=== PATIENT | female | born 1935 | race Caucasian/White ===

== ENCOUNTER 2017-06-08 18:32 | Inpatient (IN) | payer OTHER, BC ==
[2017-06-07 20:00] VITALS: BP_SYST 110
[~2017-06-08] VITALS: Ht 157.5 cm; Wt 68.9 kg
[~2017-06-08 18:32] MED LIST: AMIO100T4 PO; AMLO5TAB4 PO; DOCU-144 PO; FURO-149 PO; GABA-529 PO; INSU100I20 SQ; INSU200I SQ; IPRA4AER INH; LEVO25TA7 PO; OMEP20CA10 PO; PRAV20TA PO; PRED10TA PO; SPIRIVA INH
[2017-06-08 18:35] VITALS: BP_SYST 116
[2017-06-08] MEDS ORDERED: IPRATROPIUM BROM 0.5 MG/2.5 ML VIAL.NEB (ATROVENT) IH ONE (18:45)
[2017-06-08] MEDS ORDERED: ALBUTEROL SULFATE 0.083% 2.5 MG/3 ML VIAL.NEB IH ONE (18:45)
[2017-06-08 19:08] LABS: BASOPHILS % (AUTO) 0.3 % (0.0-2.0); EOSINOPHILS # (AUTO) 0.1 K/uL (0.0-0.4); HEMATOCRIT 36.8 % (36-48); HEMOGLOBIN 12.2 g/dL (12.0-16.0); LYMPHOCYTES # (AUTO) 1.3 K/uL (1.0-5.5); MEAN CORPUSCULAR HEMOGLOBIN 28 pg (27-31); MEAN CORPUSCULAR HGB CONC 33 % (32-36); MEAN CORPUSCULAR VOLUME 86 fL (79.0-98.0); MONOCYTES # (AUTO) 0.9 K/uL (0.0-1.0); MONOCYTES % (AUTO) 7.1 % (1.7-9.3); NEUTROPHILS # (AUTO) 10.3 K/uL (1.8-7.7); NEUTROPHILS % (AUTO) 81.6 % (40.0-70.0); PLATELET COUNT (AUTO) 255 K/uL (130-430); RED BLOOD CELL COUNT(AUTO) 4.31 MIL/uL (4.2-6.2); RED CELL DISTRIBUTION WIDTH 15.9 % (9.0-15.0); WHITE BLOOD COUNT (AUTO) 12.6 K/uL (4.8-10.8)
[2017-06-08 19:14] LABS: ANION GAP 7 (5-15); CALCIUM 8.2 mg/dL (8.4-11.0); CHLORIDE 95 mmol/L (98-107); CREATININE 2.35 mg/dL (0.55-1.30); GLUCOSE 53 mg/dL (70-99); POTASSIUM 4.2 mmol/L (3.5-5.1); SODIUM SERUM 132 mmol/L (136-145); UREA NITROGEN, BLOOD 35 mg/dL (8-21)
[2017-06-08 19:19] LABS: ALANINE AMINOTRANSFERASE 24 U/L (12-78); ALBUMIN 2.8 g/dL (3.4-4.8); ASPARTATE AMINOTRANSFERASE 33 U/L (10-37); CREATINE KINASE, TOTAL 305 U/L (26-192); PROTHROMBIN TIME 11.1 SECS (9.5-12.5); TOTAL BILIRUBIN 0.4 mg/dL (0.0-1.0)
[2017-06-08] MEDS ORDERED: MORPHINE 4 MG/ML INJ. SYRINGE IVP ONE (19:30)
[2017-06-08 19:48] LABS: CKMB RELATIVE INDEX 2.9 (0.0-2.9); CREATINE KINASE MB 8.9 ng/mL (0-3.6)
[2017-06-08] MEDS ORDERED: NACL 0.9% 1,000 ML IV ONE (19:53)
[2017-06-08] MEDS ORDERED: DEXTROSE 50% JECT 50 ML DISP.SYRIN IVP ONE (20:15)
[2017-06-08] MEDS ORDERED: D5W 1,000 ML IV SCH (21:44)
[2017-06-08 21:49] VITALS: BP_SYST 103
[2017-06-08 22:09] LABS: BILIRUBIN,URINE NEGATIVE (NEGATIVE); CLARITY/URINE CLOUDY (CLEAR); COLOR,URINE YELLOW (YELLOW); GLUCOSE,URINE NEGATIVE (NEGATIVE); KETONES,URINE NEGATIVE (NEGATIVE); LEUKOCYTE ESTERASE ,URINE 2+ (NEGATIVE); NITRITE, URINE NEGATIVE (NEGATIVE); PROTEIN URINE TRACE (NEGATIVE); UROBILINOGEN,URINE 0.2 (0.2-1.0)
[2017-06-08 22:15] LABS: BLOOD, URINE TRACE (NEGATIVE)
[2017-06-08] MEDS ORDERED: ENOXAPARIN SODIUM 30 MG/0.3 ML SYRINGE SUBCUT ONE (22:15)
[2017-06-08 22:22] LABS: BACTERIA,URINE FEW /HPF (None Seen); RBC,URINE 0-3 /HPF (0-3); WBC,URINE >100 /HPF (0-3)
[2017-06-08] MEDS ORDERED: D5NS 1,000 ML IV SCH ×2 (22:30)
[2017-06-08] MEDS ORDERED: ACETAMINOPHEN 325 MG TABLET PO PRN (22:30)
[2017-06-08] MEDS: LEVOTHYROXINE SODIUM 0.125 MG TABLET PO SCH (22:45)
[2017-06-08] MEDS: cefTRIAXone 1 GM in D5W 50 ML IV SCH (23:15)
[2017-06-08] MEDS: MORPHINE 2 MG/ML INJ. SYRINGE IVP PRN (23:21)
[2017-06-08] MEDS: D5/0.45 NS 1,000 ML IV SCH (23:47)
[2017-06-08] MEDS ORDERED: cefTRIAXone 1 GM IVPB PREMIX 50 ML IV ONE (23:49)
[2017-06-09] VITALS (13 sets, daily range): BP systolic 93–141
[2017-06-09] MEDS: IPRATROPIUM/ALBUTEROL SULFATE 3 ML AMPUL.NEB INH SCH ×4 (01:07→19:31)
[2017-06-09] MEDS: LEVOTHYROXINE SODIUM 0.125 MG TABLET PO SCH (05:11)
[2017-06-09] MEDS: MORPHINE 2 MG/ML INJ. SYRINGE IVP PRN ×2 (06:50→21:13)
[2017-06-09] MEDS: INSULIN ASPART 100 UNITS/ML, 10 ML VIAL (NovoLOG) SUBCUT PRN ×2 (06:55→22:20)
[2017-06-09 07:58] LABS: ANION GAP 6 (5-15); BASOPHILS % (AUTO) 0.3 % (0.0-2.0); CALCIUM 7.5 mg/dL (8.4-11.0); CHLORIDE 95 mmol/L (98-107); CREATININE 2.46 mg/dL (0.55-1.30); EOSINOPHILS % (AUTO) 0.3 % (0.0-4.0); GLUCOSE 261 mg/dL (70-99); HEMATOCRIT 29.4 % (36-48); HEMOGLOBIN 9.8 g/dL (12.0-16.0); LYMPHOCYTES # (AUTO) 0.6 K/uL (1.0-5.5); LYMPHOCYTES % (AUTO) 5.9 % (20.5-51.5); MEAN CORPUSCULAR HEMOGLOBIN 29 pg (27-31); MEAN CORPUSCULAR HGB CONC 33 % (32-36); MEAN CORPUSCULAR VOLUME 86 fL (79.0-98.0); MONOCYTES # (AUTO) 0.8 K/uL (0.0-1.0); MONOCYTES % (AUTO) 7.7 % (1.7-9.3); NEUTROPHILS # (AUTO) 8.4 K/uL (1.8-7.7); NEUTROPHILS % (AUTO) 85.8 % (40.0-70.0); PLATELET COUNT (AUTO) 198 K/uL (130-430); POTASSIUM 5.2 mmol/L (3.5-5.1); RED BLOOD CELL COUNT(AUTO) 3.41 MIL/uL (4.2-6.2); RED CELL DISTRIBUTION WIDTH 15.9 % (9.0-15.0); SODIUM SERUM 131 mmol/L (136-145); UREA NITROGEN, BLOOD 33 mg/dL (8-21); WHITE BLOOD COUNT (AUTO) 9.8 K/uL (4.8-10.8)
[2017-06-09] MEDS: GABAPENTIN 100 MG CAPSULE PO SCH (09:00)
[2017-06-09] MEDS: ATORVASTATIN 20 MG TABLET PO SCH (09:00)
[2017-06-09] MEDS: OMEPRAZOLE 20 MG CAPSULE.DR (PriLOSEC) PO SCH (09:00)
[2017-06-09] MEDS: AMIODARONE HCL 200 MG TABLET PO SCH (09:00)
[2017-06-09] MEDS ORDERED: POLYMYXIN 500,000/BACIT.10,000 UNITS in NS IRR 1 L IR ONE (15:38)
[2017-06-09] MEDS ORDERED: LR 1,000 ML IV SCH (16:49)
[2017-06-09] MEDS ORDERED: METOCLOPRAMIDE HCL 10 MG/2 ML VIAL IVP PRN (17:00)
[2017-06-09] MEDS ORDERED: MORPHINE 2 MG/ML INJ. SYRINGE IVP PRN ×3 (17:00)
[2017-06-09] MEDS ORDERED: ALBUTEROL SULFATE 0.083% 2.5 MG/3 ML VIAL.NEB INH ONE ×2 (18:15→18:23)
[2017-06-09] MEDS ORDERED: DEXAMETHASONE SOD PHOSPHATE 10 MG/ML VIAL IVP ONE (18:30)
[2017-06-09] MEDS ORDERED: RACEPINEPHRINE HCL 0.5 ML VIAL.NEB INH ONE ×2 (18:30→18:38)
[2017-06-09] MEDS ORDERED: DEXAMETHASONE SOD PHOSPHATE 4 MG/ML VIAL ONE (18:40)
[2017-06-09] MEDS ORDERED: MIDAZOLAM HCL 2 MG/2 ML VIAL (VERSED) ONE (21:11)
[2017-06-09] MEDS ORDERED: MIDAZOLAM HCL 2 MG/2 ML VIAL (VERSED) IVP ONE (21:30)
[2017-06-09] MEDS ORDERED: MIDAZOLAM HCL 5 MG/5 ML VIAL IVP ONE (21:30)
[2017-06-09 21:52] LABS: BLOOD GAS PH 7.239 (7.350-7.450)
[2017-06-09 21:53] LABS: ABG TOTAL HEMOGLOBIN 9.9 G/dL (12.0-18.0); BLOOD GAS BASE EXCESS -1.9 mmol/L (-3.0-3.0); BLOOD GAS COHb% 0.4 % (0.5-1.5); BLOOD GAS HHB 15.3 % (0.0-6.0)
[2017-06-09] MEDS ORDERED: LORazepam 2 MG/ML VIAL IVP PRN (22:15)
[2017-06-09] MEDS ORDERED: MORPHINE 4 MG/ML INJ. SYRINGE IVP PRN (22:15)
[2017-06-09 22:56] LABS: BLOOD GAS PH 7.351 (7.350-7.450)
[2017-06-09 22:57] LABS: ABG TOTAL HEMOGLOBIN 8.9 G/dL (12.0-18.0); BLOOD GAS BASE EXCESS 0.2 mmol/L (-3.0-3.0); BLOOD GAS COHb% 1.2 % (0.5-1.5); BLOOD GAS HHB 6.6 % (0.0-6.0); BLOOD O2Hb% 91.6 % (94.0-97.0)
[2017-06-09] MEDS: ceFAZolin SODIUM 2 GM in D5W 100 ML IV SCH (23:09)
[2017-06-09] MEDS: cefTRIAXone 1 GM in D5W 50 ML IV SCH (23:43)
[2017-06-10] VITALS (29 sets, daily range): BP systolic 92–131
[2017-06-10] MEDS: cefTRIAXone 1 GM in D5W 50 ML IV SCH ×2
[2017-06-10] MEDS: IPRATROPIUM/ALBUTEROL SULFATE 3 ML AMPUL.NEB INH SCH ×4 (01:15→19:31)
[2017-06-10] MEDS: D5/0.45 NS 1,000 ML IV SCH (03:16)
[2017-06-10] MEDS: LEVOTHYROXINE SODIUM 0.125 MG TABLET PO SCH (05:59)
[2017-06-10] MEDS: INSULIN ASPART 100 UNITS/ML, 10 ML VIAL (NovoLOG) SUBCUT PRN ×4 (06:16→20:53)
[2017-06-10 06:54] LABS: BASOPHILS % (AUTO) 0.1 % (0.0-2.0); HEMATOCRIT 24.6 % (36-48); HEMOGLOBIN 8.1 g/dL (12.0-16.0); LYMPHOCYTES # (AUTO) 0.3 K/uL (1.0-5.5); LYMPHOCYTES % (AUTO) 2.7 % (20.5-51.5); MEAN CORPUSCULAR HEMOGLOBIN 28 pg (27-31); MEAN CORPUSCULAR HGB CONC 33 % (32-36); MEAN CORPUSCULAR VOLUME 86 fL (79.0-98.0); MONOCYTES # (AUTO) 0.4 K/uL (0.0-1.0); MONOCYTES % (AUTO) 3.7 % (1.7-9.3); NEUTROPHILS % (AUTO) 93.5 % (40.0-70.0); PLATELET COUNT (AUTO) 176 K/uL (130-430); RED BLOOD CELL COUNT(AUTO) 2.86 MIL/uL (4.2-6.2); RED CELL DISTRIBUTION WIDTH 15.8 % (9.0-15.0); WHITE BLOOD COUNT (AUTO) 10.7 K/uL (4.8-10.8)
[2017-06-10 07:13] LABS: ANION GAP 8 (5-15); CALCIUM 7.5 mg/dL (8.4-11.0); CHLORIDE 94 mmol/L (98-107); CREATININE 2.28 mg/dL (0.55-1.30); FREE T4 (FREE THYROXINE) 1.2 ng/dL (0.6-1.6); GLUCOSE 376 mg/dL (70-99); POTASSIUM 5.5 mmol/L (3.5-5.1); SODIUM SERUM 129 mmol/L (136-145); THYROID STIMULATING HORMONE 0.61 uIu/mL (0.34-4.82); UREA NITROGEN, BLOOD 35 mg/dL (8-21)
[2017-06-10] MEDS: ENOXAPARIN SODIUM 30 MG/0.3 ML SYRINGE SUBCUT SCH (08:30)
[2017-06-10] MEDS: ceFAZolin SODIUM 2 GM in D5W 100 ML IV SCH (08:30)
[2017-06-10] MEDS: ATORVASTATIN 20 MG TABLET PO SCH (09:00)
[2017-06-10] MEDS: OMEPRAZOLE 20 MG CAPSULE.DR (PriLOSEC) PO SCH (09:00)
[2017-06-10] MEDS: AMIODARONE HCL 200 MG TABLET PO SCH (09:00)
[2017-06-10] MEDS ORDERED: FUROSEMIDE 20 MG/2 ML VIAL IVP ONE (10:00)
[2017-06-10 10:27] LABS: BLOOD GAS PH 7.406 (7.350-7.450)
[2017-06-10 10:28] LABS: ABG TOTAL HEMOGLOBIN 8.2 G/dL (12.0-18.0); BLOOD GAS BASE EXCESS -0.2 mmol/L (-3.0-3.0); BLOOD GAS COHb% 0.6 % (0.5-1.5); BLOOD O2Hb% 93.3 % (94.0-97.0)
[2017-06-10] MEDS: ONDANSETRON HCL 4 MG/2 ML VIAL IVP PRN (10:44)
[2017-06-10] MEDS ORDERED: ALBUTEROL SULFATE 0.083% 2.5 MG/3 ML VIAL.NEB INH PRN (11:15)
[2017-06-10] MEDS ORDERED: IPRATROPIUM BROM 0.5 MG/2.5 ML VIAL.NEB (ATROVENT) INH PRN (11:15)
[2017-06-10] MEDS ORDERED: IPRATROPIUM BROM 0.5 MG/2.5 ML VIAL.NEB (ATROVENT) INH SCH (13:00)
[2017-06-10] MEDS ORDERED: ALBUTEROL SULFATE 0.083% 2.5 MG/3 ML VIAL.NEB INH SCH (13:00)
[2017-06-10 14:37] LABS: BLOOD GAS BASE EXCESS 3.5 mmol/L (-3.0-3.0); BLOOD GAS COHb% 1.8 % (0.5-1.5); BLOOD GAS HHB 3.4 % (0.0-6.0); BLOOD GAS PH 7.422 (7.350-7.450)
[2017-06-10] MEDS: GABAPENTIN 100 MG CAPSULE PO SCH ×2 (15:47→20:37)
[2017-06-10 16:52] LABS: ABG TOTAL HEMOGLOBIN 8.6 G/dL (12.0-18.0); BLOOD GAS BASE EXCESS 3.3 mmol/L (-3.0-3.0); BLOOD GAS COHb% 0.6 % (0.5-1.5); BLOOD GAS HHB 8.9 % (0.0-6.0); BLOOD O2Hb% 90.2 % (94.0-97.0)
[2017-06-10] MEDS: MORPHINE 2 MG/ML INJ. SYRINGE IVP PRN (20:36)
[2017-06-11] VITALS (19 sets, daily range): BP systolic 101–127
[2017-06-11] MEDS: IPRATROPIUM/ALBUTEROL SULFATE 3 ML AMPUL.NEB INH SCH ×4 (01:15→21:10)
[2017-06-11] MEDS: LEVOTHYROXINE SODIUM 0.125 MG TABLET PO SCH (06:31)
[2017-06-11] MEDS: INSULIN ASPART 100 UNITS/ML, 10 ML VIAL (NovoLOG) SUBCUT PRN ×4 (06:38→20:55)
[2017-06-11 06:47] LABS: BASOPHILS % (AUTO) 0.1 % (0.0-2.0); HEMATOCRIT 23.3 % (36-48); HEMOGLOBIN 7.4 g/dL (12.0-16.0); LYMPHOCYTES # (AUTO) 0.3 K/uL (1.0-5.5); LYMPHOCYTES % (AUTO) 2.1 % (20.5-51.5); MEAN CORPUSCULAR HEMOGLOBIN 28 pg (27-31); MEAN CORPUSCULAR HGB CONC 32 % (32-36); MEAN CORPUSCULAR VOLUME 87 fL (79.0-98.0); MONOCYTES # (AUTO) 0.6 K/uL (0.0-1.0); MONOCYTES % (AUTO) 4.5 % (1.7-9.3); NEUTROPHILS # (AUTO) 12.8 K/uL (1.8-7.7); NEUTROPHILS % (AUTO) 93.3 % (40.0-70.0); PLATELET COUNT (AUTO) 188 K/uL (130-430); RED BLOOD CELL COUNT(AUTO) 2.67 MIL/uL (4.2-6.2); RED CELL DISTRIBUTION WIDTH 15.9 % (9.0-15.0)
[2017-06-11 06:52] LABS: WHITE BLOOD COUNT (AUTO) 13.7 K/uL (4.8-10.8)
[2017-06-11 07:11] LABS: ALANINE AMINOTRANSFERASE 14 U/L (12-78); ALBUMIN 2.1 g/dL (3.4-4.8); ANION GAP 5 (5-15); ASPARTATE AMINOTRANSFERASE 33 U/L (10-37); CALCIUM 7.9 mg/dL (8.4-11.0); CHLORIDE 93 mmol/L (98-107); CREATININE 1.82 mg/dL (0.55-1.30); GLUCOSE 340 mg/dL (70-99); POTASSIUM 4.7 mmol/L (3.5-5.1); SODIUM SERUM 128 mmol/L (136-145); TOTAL BILIRUBIN 0.3 mg/dL (0.0-1.0); UREA NITROGEN, BLOOD 34 mg/dL (8-21)
[2017-06-11] MEDS: AMIODARONE HCL 200 MG TABLET PO SCH (08:47)
[2017-06-11] MEDS: ATORVASTATIN 20 MG TABLET PO SCH (08:48)
[2017-06-11] MEDS: OMEPRAZOLE 20 MG CAPSULE.DR (PriLOSEC) PO SCH (08:48)
[2017-06-11] MEDS: ENOXAPARIN SODIUM 30 MG/0.3 ML SYRINGE SUBCUT SCH (08:48)
[2017-06-11] MEDS: GABAPENTIN 100 MG CAPSULE PO SCH ×3 (08:48→20:43)
[2017-06-11] MEDS ORDERED: FUROSEMIDE 20 MG/2 ML VIAL IVP ONE (09:45)
[2017-06-11] MEDS: ONDANSETRON HCL 4 MG/2 ML VIAL IVP PRN (11:35)
[2017-06-11] MEDS: MORPHINE 2 MG/ML INJ. SYRINGE IVP PRN (11:37)
[2017-06-11] MEDS: HYDROcodone/ACETAMIN 5-325 MG TAB (NORCO/ VICODIN) PO PRN (15:20)
[2017-06-11] MEDS: cefTRIAXone 1 GM in D5W 50 ML IV SCH (22:53)
[2017-06-12] VITALS (8 sets, daily range): BP systolic 101–128
[2017-06-12] MEDS: IPRATROPIUM/ALBUTEROL SULFATE 3 ML AMPUL.NEB INH SCH ×4 (01:39→19:51)
[2017-06-12] MEDS: LEVOTHYROXINE SODIUM 0.125 MG TABLET PO SCH (05:39)
[2017-06-12] MEDS: MORPHINE 2 MG/ML INJ. SYRINGE IVP PRN (05:42)
[2017-06-12] MEDS: INSULIN ASPART 100 UNITS/ML, 10 ML VIAL (NovoLOG) SUBCUT PRN ×3 (06:23→21:58)
[2017-06-12 06:34] LABS: BASOPHILS % (AUTO) 0.1 % (0.0-2.0); EOSINOPHILS # (AUTO) 0.1 K/uL (0.0-0.4); EOSINOPHILS % (AUTO) 0.7 % (0.0-4.0); HEMATOCRIT 26.8 % (36-48); HEMOGLOBIN 8.6 g/dL (12.0-16.0); LYMPHOCYTES # (AUTO) 0.4 K/uL (1.0-5.5); LYMPHOCYTES % (AUTO) 4.9 % (20.5-51.5); MEAN CORPUSCULAR HEMOGLOBIN 28 pg (27-31); MEAN CORPUSCULAR HGB CONC 32 % (32-36); MEAN CORPUSCULAR VOLUME 88 fL (79.0-98.0); MONOCYTES # (AUTO) 0.6 K/uL (0.0-1.0); MONOCYTES % (AUTO) 6.8 % (1.7-9.3); NEUTROPHILS # (AUTO) 7.5 K/uL (1.8-7.7); NEUTROPHILS % (AUTO) 87.5 % (40.0-70.0); PLATELET COUNT (AUTO) 190 K/uL (130-430); RED BLOOD CELL COUNT(AUTO) 3.04 MIL/uL (4.2-6.2); WHITE BLOOD COUNT (AUTO) 8.6 K/uL (4.8-10.8)
[2017-06-12 06:58] LABS: ALANINE AMINOTRANSFERASE 19 U/L (12-78); ANION GAP 2 (5-15); ASPARTATE AMINOTRANSFERASE 54 U/L (10-37); CALCIUM 7.8 mg/dL (8.4-11.0); CHLORIDE 96 mmol/L (98-107); POTASSIUM 5.2 mmol/L (3.5-5.1); SODIUM SERUM 129 mmol/L (136-145); TOTAL BILIRUBIN 0.4 mg/dL (0.0-1.0); TOTAL PROTEIN, SERUM 5.9 g/dL (6.4-8.3); UREA NITROGEN, BLOOD 41 mg/dL (8-21)
[2017-06-12 07:04] LABS: GLUCOSE 437 mg/dL (70-99)
[2017-06-12] MEDS ORDERED: INSULIN ASPART 100 UNITS/ML, 10 ML VIAL SUBCUT ONE (07:15)
[2017-06-12] MEDS: FUROSEMIDE 20 MG/2 ML VIAL IVP SCH (09:23)
[2017-06-12] MEDS: AMIODARONE HCL 200 MG TABLET PO SCH (09:24)
[2017-06-12] MEDS: ATORVASTATIN 20 MG TABLET PO SCH (09:24)
[2017-06-12] MEDS: GABAPENTIN 100 MG CAPSULE PO SCH ×3 (09:25→21:52)
[2017-06-12] MEDS: OMEPRAZOLE 20 MG CAPSULE.DR (PriLOSEC) PO SCH (09:25)
[2017-06-12] MEDS: ENOXAPARIN SODIUM 30 MG/0.3 ML SYRINGE SUBCUT SCH (09:26)
[2017-06-12] MEDS: HYDROcodone/ACETAMIN 5-325 MG TAB (NORCO/ VICODIN) PO PRN ×3 (09:28→15:19)
[2017-06-12] MEDS: cefTRIAXone 1 GM in D5W 50 ML IV SCH (23:23)
[2017-06-13 00:39] VITALS: BP_SYST 102
[2017-06-13] MEDS: IPRATROPIUM/ALBUTEROL SULFATE 3 ML AMPUL.NEB INH SCH ×4 (01:24→19:49)
[2017-06-13 04:04] VITALS: BP_SYST 128
[2017-06-13] MEDS: INSULIN ASPART 100 UNITS/ML, 10 ML VIAL (NovoLOG) SUBCUT PRN ×4 (06:13→20:59)
[2017-06-13] MEDS: LEVOTHYROXINE SODIUM 0.125 MG TABLET PO SCH (06:25)
[2017-06-13 07:10] LABS: BASOPHILS % (AUTO) 0.3 % (0.0-2.0); EOSINOPHILS # (AUTO) 0.3 K/uL (0.0-0.4); EOSINOPHILS % (AUTO) 2.7 % (0.0-4.0); HEMATOCRIT 27.7 % (36-48); HEMOGLOBIN 8.9 g/dL (12.0-16.0); LYMPHOCYTES # (AUTO) 0.9 K/uL (1.0-5.5); LYMPHOCYTES % (AUTO) 9.2 % (20.5-51.5); MEAN CORPUSCULAR HEMOGLOBIN 29 pg (27-31); MEAN CORPUSCULAR HGB CONC 32 % (32-36); MEAN CORPUSCULAR VOLUME 89 fL (79.0-98.0); MONOCYTES # (AUTO) 0.9 K/uL (0.0-1.0); MONOCYTES % (AUTO) 9.1 % (1.7-9.3); NEUTROPHILS # (AUTO) 8.1 K/uL (1.8-7.7); NEUTROPHILS % (AUTO) 78.7 % (40.0-70.0); PLATELET COUNT (AUTO) 224 K/uL (130-430); RED BLOOD CELL COUNT(AUTO) 3.11 MIL/uL (4.2-6.2); RED CELL DISTRIBUTION WIDTH 16.1 % (9.0-15.0); WHITE BLOOD COUNT (AUTO) 10.2 K/uL (4.8-10.8)
[2017-06-13 07:14] LABS: ALANINE AMINOTRANSFERASE 22 U/L (12-78); ALBUMIN 2.1 g/dL (3.4-4.8); ANION GAP 2 (5-15); ASPARTATE AMINOTRANSFERASE 51 U/L (10-37); CALCIUM 8.6 mg/dL (8.4-11.0); CHLORIDE 96 mmol/L (98-107); CREATININE 1.65 mg/dL (0.55-1.30); GLUCOSE 185 mg/dL (70-99); SODIUM SERUM 131 mmol/L (136-145); TOTAL BILIRUBIN 0.4 mg/dL (0.0-1.0); UREA NITROGEN, BLOOD 40 mg/dL (8-21)
[2017-06-13 08:21] VITALS: BP_SYST 105
[2017-06-13] MEDS: AMIODARONE HCL 200 MG TABLET PO SCH (08:44)
[2017-06-13] MEDS: ATORVASTATIN 20 MG TABLET PO SCH (08:45)
[2017-06-13] MEDS: HYDROcodone/ACETAMIN 5-325 MG TAB (NORCO/ VICODIN) PO PRN (08:45)
[2017-06-13] MEDS: OMEPRAZOLE 20 MG CAPSULE.DR (PriLOSEC) PO SCH (08:46)
[2017-06-13] MEDS: DOCUSATE SODIUM 100 MG CAPSULE PO SCH ×2 (08:46→20:55)
[2017-06-13] MEDS: FUROSEMIDE 20 MG/2 ML VIAL IVP SCH (08:47)
[2017-06-13] MEDS: GABAPENTIN 100 MG CAPSULE PO SCH ×3 (08:49→20:55)
[2017-06-13] MEDS: ENOXAPARIN SODIUM 30 MG/0.3 ML SYRINGE SUBCUT SCH (08:50)
[2017-06-13] MEDS: methylPREDNISolone SOD SUCC/PF 62.5 MG/ML VIAL IVP SCH ×2 (10:28→17:27)
[2017-06-13] MEDS: MORPHINE 2 MG/ML INJ. SYRINGE IVP PRN (10:28)
[2017-06-13] MEDS ORDERED: guaiFENesin ER 600 MG TAB PO SCH (12:45)
[2017-06-13 14:00] VITALS: BP_SYST 103
[2017-06-13 17:10] VITALS: BP_SYST 126
[2017-06-13] MEDS: cefTRIAXone 1 GM in D5W 50 ML IV SCH (17:32)
[2017-06-13 19:55] VITALS: BP_SYST 117
[2017-06-13] MEDS: guaiFENesin ER 600 MG TAB PO SCH (20:55)
[2017-06-14] MEDS: IPRATROPIUM/ALBUTEROL SULFATE 3 ML AMPUL.NEB INH SCH ×4 (00:20→19:30)
[2017-06-14 00:33] VITALS: BP_SYST 104
[2017-06-14] MEDS: methylPREDNISolone SOD SUCC/PF 62.5 MG/ML VIAL IVP SCH ×2 (01:59→10:45)
[2017-06-14] MEDS: HYDROcodone/ACETAMIN 5-325 MG TAB (NORCO/ VICODIN) PO PRN ×2 (02:06→08:30)
[2017-06-14 04:50] VITALS: BP_SYST 138
[2017-06-14] MEDS: LEVOTHYROXINE SODIUM 0.125 MG TABLET PO SCH (06:03)
[2017-06-14] MEDS: INSULIN ASPART 100 UNITS/ML, 10 ML VIAL (NovoLOG) SUBCUT PRN ×4 (06:03→20:09)
[2017-06-14 07:14] LABS: BASOPHILS % (AUTO) 0.2 % (0.0-2.0); EOSINOPHILS % (AUTO) 0.1 % (0.0-4.0); HEMATOCRIT 28.2 % (36-48); HEMOGLOBIN 9.3 g/dL (12.0-16.0); LYMPHOCYTES # (AUTO) 0.3 K/uL (1.0-5.5); LYMPHOCYTES % (AUTO) 3.5 % (20.5-51.5); MEAN CORPUSCULAR HEMOGLOBIN 29 pg (27-31); MEAN CORPUSCULAR HGB CONC 33 % (32-36); MEAN CORPUSCULAR VOLUME 88 fL (79.0-98.0); MONOCYTES # (AUTO) 0.1 K/uL (0.0-1.0); MONOCYTES % (AUTO) 1.7 % (1.7-9.3); NEUTROPHILS # (AUTO) 8.1 K/uL (1.8-7.7); NEUTROPHILS % (AUTO) 94.5 % (40.0-70.0); PLATELET COUNT (AUTO) 241 K/uL (130-430); RED CELL DISTRIBUTION WIDTH 15.6 % (9.0-15.0); WHITE BLOOD COUNT (AUTO) 8.5 K/uL (4.8-10.8)
[2017-06-14 07:24] LABS: ALANINE AMINOTRANSFERASE 25 U/L (12-78); ALBUMIN 2.1 g/dL (3.4-4.8); ANION GAP 5 (5-15); ASPARTATE AMINOTRANSFERASE 39 U/L (10-37); CALCIUM 8.2 mg/dL (8.4-11.0); CHLORIDE 92 mmol/L (98-107); CREATININE 1.48 mg/dL (0.55-1.30); GLUCOSE 359 mg/dL (70-99); POTASSIUM 4.8 mmol/L (3.5-5.1); SODIUM SERUM 129 mmol/L (136-145); TOTAL BILIRUBIN 0.5 mg/dL (0.0-1.0); TOTAL PROTEIN, SERUM 6.2 g/dL (6.4-8.3); UREA NITROGEN, BLOOD 37 mg/dL (8-21)
[2017-06-14 07:54] VITALS: BP_SYST 129
[2017-06-14] MEDS: FUROSEMIDE 20 MG/2 ML VIAL IVP SCH (08:29)
[2017-06-14] MEDS: OMEPRAZOLE 20 MG CAPSULE.DR (PriLOSEC) PO SCH (08:30)
[2017-06-14] MEDS: AMIODARONE HCL 200 MG TABLET PO SCH (08:30)
[2017-06-14] MEDS: DOCUSATE SODIUM 100 MG CAPSULE PO SCH ×2 (08:30→20:02)
[2017-06-14] MEDS: ATORVASTATIN 20 MG TABLET PO SCH (08:30)
[2017-06-14] MEDS: GABAPENTIN 100 MG CAPSULE PO SCH ×3 (08:30→20:02)
[2017-06-14] MEDS: guaiFENesin ER 600 MG TAB PO SCH ×2 (08:30→20:02)
[2017-06-14] MEDS: ENOXAPARIN SODIUM 30 MG/0.3 ML SYRINGE SUBCUT SCH (08:31)
[2017-06-14 11:24] VITALS: BP_SYST 137
[2017-06-14] MEDS: MILK OF MAGNESIA 30 ML UDC PO PRN (14:51)
[2017-06-14 15:31] VITALS: BP_SYST 128
[2017-06-14] MEDS: cefTRIAXone 1 GM in D5W 50 ML IV SCH (17:45)
[2017-06-14 19:59] VITALS: BP_SYST 120
[2017-06-15] VITALS (8 sets, daily range): BP systolic 102–135
[2017-06-15] MEDS: IPRATROPIUM/ALBUTEROL SULFATE 3 ML AMPUL.NEB INH SCH ×4 (00:40→19:33)
[2017-06-15] MEDS: HYDROcodone/ACETAMIN 5-325 MG TAB (NORCO/ VICODIN) PO PRN (02:59)
[2017-06-15] MEDS: LEVOTHYROXINE SODIUM 0.125 MG TABLET PO SCH (06:18)
[2017-06-15] MEDS: INSULIN ASPART 100 UNITS/ML, 10 ML VIAL (NovoLOG) SUBCUT PRN ×4 (06:18→23:24)
[2017-06-15] MEDS: MILK OF MAGNESIA 30 ML UDC PO PRN (06:18)
[2017-06-15 06:31] LABS: CHLORIDE 98 mmol/L (98-107); CREATININE 1.45 mg/dL (0.55-1.30); GLUCOSE 285 mg/dL (70-99); POTASSIUM 4.5 mmol/L (3.5-5.1); SODIUM SERUM 133 mmol/L (136-145); UREA NITROGEN, BLOOD 42 mg/dL (8-21)
[2017-06-15 06:48] LABS: ANION GAP < 3 (5-15)
[2017-06-15] MEDS: DOCUSATE SODIUM 100 MG CAPSULE PO SCH ×2 (08:32→23:12)
[2017-06-15] MEDS: ENOXAPARIN SODIUM 30 MG/0.3 ML SYRINGE SUBCUT SCH (08:32)
[2017-06-15] MEDS: AMIODARONE HCL 200 MG TABLET PO SCH (08:33)
[2017-06-15] MEDS: PREDNISONE 20 MG TABLET PO SCH (08:33)
[2017-06-15] MEDS: ATORVASTATIN 20 MG TABLET PO SCH (08:33)
[2017-06-15] MEDS: OMEPRAZOLE 20 MG CAPSULE.DR (PriLOSEC) PO SCH (08:33)
[2017-06-15] MEDS: GABAPENTIN 100 MG CAPSULE PO SCH ×3 (08:33→23:12)
[2017-06-15] MEDS: guaiFENesin ER 600 MG TAB PO SCH ×2 (08:33→23:11)
[2017-06-15] MEDS: FUROSEMIDE 20 MG/2 ML VIAL IVP SCH (08:34)
[2017-06-15] MEDS ORDERED: BISACODYL 10 MG/SUPPOSITORY RC ONE (14:30)
[2017-06-15] MEDS: cefTRIAXone 1 GM in D5W 50 ML IV SCH (18:45)
[2017-06-15] MEDS: POLYETHYLENE GLYCOL 3350, 17 GM/ POWD.PACK PO SCH (23:11)
[2017-06-16] VITALS (7 sets, daily range): BP systolic 92–126
[2017-06-16] MEDS: IPRATROPIUM/ALBUTEROL SULFATE 3 ML AMPUL.NEB INH SCH ×4 (00:44→19:20)
[2017-06-16] MEDS: LEVOTHYROXINE SODIUM 0.125 MG TABLET PO SCH (06:45)
[2017-06-16] MEDS: INSULIN ASPART 100 UNITS/ML, 10 ML VIAL (NovoLOG) SUBCUT PRN (06:47)
[2017-06-16 07:16] LABS: HEMATOCRIT 28.9 % (36-48); HEMOGLOBIN 9.4 g/dL (12.0-16.0); MEAN CORPUSCULAR HEMOGLOBIN 29 pg (27-31); MEAN CORPUSCULAR HGB CONC 33 % (32-36); MEAN CORPUSCULAR VOLUME 89 fL (79.0-98.0); PLATELET COUNT (AUTO) 305 K/uL (130-430); RED BLOOD CELL COUNT(AUTO) 3.23 MIL/uL (4.2-6.2); RED CELL DISTRIBUTION WIDTH 16.6 % (9.0-15.0)
[2017-06-16 07:30] LABS: WHITE BLOOD COUNT (AUTO) 16.5 K/uL (4.8-10.8)
[2017-06-16 07:40] LABS: ANION GAP 2 (5-15); CALCIUM 8.4 mg/dL (8.4-11.0); CHLORIDE 92 mmol/L (98-107); CREATININE 1.57 mg/dL (0.55-1.30); GLUCOSE 330 mg/dL (70-99); SODIUM SERUM 130 mmol/L (136-145); UREA NITROGEN, BLOOD 45 mg/dL (8-21)
[2017-06-16] MEDS ORDERED: SODIUM POLYSTYRENE SULFONATE 15 GM/60 ML UDBTL PO ONE ×3 (08:45→13:30)
[2017-06-16] MEDS ORDERED: POLYETHYLENE GLYCOL 3350, 17 GM/ POWD.PACK PO SCH (09:00)
[2017-06-16 09:34] LABS: ATYPICAL LYMPHOCYTES % 0 % (0-0); BAND % (MANUAL) 0 % (0-6); BASOPHILS % (MANUAL) 0 % (0-2); EOSINOPHILS % (MANUAL) 0 % (0-7); LYMPHOCYTES % (MANUAL) 5 % (20-46); MONOCYTES % (MANUAL) 10 % (0-11)
[2017-06-16] MEDS: ATORVASTATIN 20 MG TABLET PO SCH (10:11)
[2017-06-16] MEDS: OMEPRAZOLE 20 MG CAPSULE.DR (PriLOSEC) PO SCH (10:11)
[2017-06-16] MEDS: GABAPENTIN 100 MG CAPSULE PO SCH ×3 (10:12→21:09)
[2017-06-16] MEDS: AMIODARONE HCL 200 MG TABLET PO SCH (10:12)
[2017-06-16] MEDS: DOCUSATE SODIUM 100 MG CAPSULE PO SCH ×2 (10:12→21:10)
[2017-06-16] MEDS: PREDNISONE 20 MG TABLET PO SCH (10:12)
[2017-06-16] MEDS: guaiFENesin ER 600 MG TAB PO SCH ×2 (10:12→21:10)
[2017-06-16] MEDS: FUROSEMIDE 20 MG/2 ML VIAL IVP SCH (10:13)
[2017-06-16] MEDS: ENOXAPARIN SODIUM 30 MG/0.3 ML SYRINGE SUBCUT SCH (10:16)
[2017-06-16] MEDS: MORPHINE 2 MG/ML INJ. SYRINGE IVP PRN (13:59)
[2017-06-16] MEDS: cefTRIAXone 1 GM in D5W 50 ML IV SCH (17:49)
[2017-06-16] MEDS ORDERED: ACET-2165 PO (20:34)
[2017-06-16] MEDS ORDERED: ALBU2.5V7 INH (20:35)
[2017-06-16] MEDS ORDERED: AMI200 PO (20:36)
[2017-06-16] MEDS ORDERED: LIP20 PO (20:38)
[2017-06-16] MEDS ORDERED: [UNRECOGNIZED DRUG - CODE] IN (20:39)
[2017-06-16] MEDS ORDERED: ROCPM1 IV (20:40)
[2017-06-16] MEDS ORDERED: DOCU250C71 (20:41)
[2017-06-16] MEDS ORDERED: DOCU250C PO (20:41)
[2017-06-16] MEDS ORDERED: LOVI30 SQ (20:44)
[2017-06-16] MEDS ORDERED: LASI20 IVP (20:45)
[2017-06-16] MEDS ORDERED: NEU100 PO (20:45)
[2017-06-16] MEDS ORDERED: HYDR-1189 PO (20:46)
[2017-06-16] MEDS ORDERED: GUAI600T86 PO (20:46)
[2017-06-16] MEDS ORDERED: INSU100V26 SUBCUT (20:48)
[2017-06-16] MEDS ORDERED: INSU100V11 SQ ×2 (20:48)
[2017-06-16] MEDS ORDERED: SSNOVOLOG SUBCUT (20:48)
[2017-06-16] MEDS ORDERED: MAGN400O4 PO (20:49)
[2017-06-16] MEDS ORDERED: LEVO125T PO (20:49)
[2017-06-16] MEDS ORDERED: MORP2SYR INJ (20:50)
[2017-06-16] MEDS ORDERED: OMEP20CA10 PO (20:50)
[2017-06-16] MEDS ORDERED: PRED20TA PO (20:51)
[2017-06-16] MEDS ORDERED: POLY17PO4 PO (20:51)
[2017-06-16] MEDS ORDERED: ONDA4VIA53 IVP (20:51)
[2017-06-16] MEDS: POLYETHYLENE GLYCOL 3350, 17 GM/ POWD.PACK PO SCH (21:00)
[2017-06-16] MEDS: HYDROcodone/ACETAMIN 5-325 MG TAB (NORCO/ VICODIN) PO PRN (21:17)
== END 2017-06-16 21:40 | DRG 480 ==
LOC: SED 18:32 → STU 20:48 → SIC 06-09 21:03 → STU 06-11 15:15 → SMU 06-15 18:22
PROVIDERS: ADMIT Internal Medicine; ATTEND Internal Medicine
PROC: 5A1935Z Respiratory Ventilation, Less than 24 Consecutive Hours (ICD-10-PCS; 2017-06-09)
PROC: 0QS606Z Reposition Right Upper Femur with Intramedullary Internal Fixation Device, Open Approach (ICD-10-PCS; principal; 2017-06-09 15:00)
PROC: 30233N1 Transfusion of Nonautologous Red Blood Cells into Peripheral Vein, Percutaneous Approach (ICD-10-PCS; 2017-06-11)
DX: S72.141A Displaced intertrochanteric fracture of right femur, initial encounter for closed fracture (principal); J96.20 Acute and chronic respiratory failure, unspecified whether with hypoxia or hypercapnia; E43 Unspecified severe protein-calorie malnutrition; I13.0 Hypertensive heart and chronic kidney disease with heart failure and stage 1 through stage 4 chronic kidney disease, or unspecified chronic kidney disease; N39.0 Urinary tract infection, site not specified; J44.1 Chronic obstructive pulmonary disease with (acute) exacerbation; N17.9 Acute kidney failure, unspecified; I50.20 Unspecified systolic (congestive) heart failure; E87.1 Hypo-osmolality and hyponatremia; N18.9 Chronic kidney disease, unspecified; E11.40 Type 2 diabetes mellitus with diabetic neuropathy, unspecified; J98.01 Acute bronchospasm; I27.2 Other secondary pulmonary hypertension; E11.649 Type 2 diabetes mellitus with hypoglycemia without coma; E03.9 Hypothyroidism, unspecified; W01.0XXA Fall on same level from slipping, tripping and stumbling without subsequent striking against object, initial encounter; E11.22 Type 2 diabetes mellitus with diabetic chronic kidney disease; I48.91 Unspecified atrial fibrillation; D50.0 Iron deficiency anemia secondary to blood loss (chronic); E78.5 Hyperlipidemia, unspecified; F03.90 Unspecified dementia, unspecified severity, without behavioral disturbance, psychotic disturbance, mood disturbance, and anxiety; K21.9 Gastro-esophageal reflux disease without esophagitis; Z68.27 Body mass index [BMI] 27.0-27.9, adult; Z79.4 Long term (current) use of insulin; Z83.3 Family history of diabetes mellitus; Z99.81 Dependence on supplemental oxygen; Z79.01 Long term (current) use of anticoagulants; Z79.899 Other long term (current) drug therapy; Y93.89 Activity, other specified; Y92.89 Other specified places as the place of occurrence of the external cause; Y99.8 Other external cause status; Z87.891 Personal history of nicotine dependence
CPT/HCPCS: 36415; 36600; 71010; 72192-TC; 73552; 76000; 76770; 80048; 80053; 81000-TC; 82550-TC; 82553-TC; 82803-TC; 82962; 83036; 83880; 84439; 84443-TC; 84484; 85007; 85025; 85027; 85610-TC; 85730-TC; 86870; 86886; 86900; 86901; 86920; 87070-TC; 87081; 87086; 87205-TC; 93005; 93970; 94002; 94003; 94010; 94640; 94760; 96361; 96374; 96375; 97110-GP; 97530-GP; 99285; C1713; C1769; J0690; J0696; J1100; J1650; J1815; J1940; J2270; J2405; J2930; J3465; J7030; J7042; J7050; J7060; J7120; J7512; P9021

== ENCOUNTER 2017-07-21 02:04 | Inpatient (IN) | payer OTHER, BC ==
[~2017-07-21] VITALS: Ht 154.9 cm; Wt 60.8 kg
[2017-07-21] VITALS (7 sets, daily range): BP systolic 114–126
[~2017-07-21 02:04] MED LIST changes: +ACET-2165 PO; +ALBU2.5V7 INH; +AMI200 PO; -AMLO5TAB4 PO; -DOCU-144 PO; +DOCU250C PO; +DOCU250C71; -FURO-149 PO; +GUAI600T86 PO; +HYDR-1189 PO; -INSU100I20 SQ; +INSU100V11 SQ; +INSU100V26 SUBCUT; -INSU200I SQ; -IPRA4AER INH; +LASI20 IVP; +LEVO125T PO; +LIP20 PO; +LOVI30 SQ; +MAGN400O4 PO; +MORP2SYR INJ; +NEU100 PO; +ONDA4VIA53 IVP; +POLY17PO4 PO; -PRED10TA PO; +PRED20TA PO; +ROCPM1 IV; -SPIRIVA INH; +SSNOVOLOG SUBCUT; +[UNRECOGNIZED DRUG - CODE] IN
[2017-07-21] MEDS ORDERED: NACL 0.9% 1,000 ML IV ONE (02:15)
[2017-07-21] MEDS ORDERED: IPRATROPIUM/ALBUTEROL SULFATE 3 ML AMPUL.NEB INH ONE ×2 (02:15→03:00)
[2017-07-21 02:42] LABS: BASOPHILS # (AUTO) 0.1 K/uL (0.0-0.2); BASOPHILS % (AUTO) 0.9 % (0.0-2.0); EOSINOPHILS % (AUTO) 0.4 % (0.0-4.0); HEMATOCRIT 34.3 % (36-48); HEMOGLOBIN 11.4 g/dL (12.0-16.0); LYMPHOCYTES # (AUTO) 1.5 K/uL (1.0-5.5); LYMPHOCYTES % (AUTO) 16.6 % (20.5-51.5); MEAN CORPUSCULAR HEMOGLOBIN 30 pg (27-31); MEAN CORPUSCULAR HGB CONC 33 % (32-36); MEAN CORPUSCULAR VOLUME 91 fL (79.0-98.0); MONOCYTES # (AUTO) 0.6 K/uL (0.0-1.0); MONOCYTES % (AUTO) 7.1 % (1.7-9.3); NEUTROPHILS # (AUTO) 6.8 K/uL (1.8-7.7); PLATELET COUNT (AUTO) 219 K/uL (130-430); RED BLOOD CELL COUNT(AUTO) 3.79 MIL/uL (4.2-6.2)
[2017-07-21 02:49] LABS: ANION GAP 3 (5-15); CALCIUM 8.5 mg/dL (8.4-11.0); CHLORIDE 102 mmol/L (98-107); GLUCOSE 286 mg/dL (70-99); POTASSIUM 4.1 mmol/L (3.5-5.1); SODIUM SERUM 140 mmol/L (136-145); UREA NITROGEN, BLOOD 19 mg/dL (8-21)
[2017-07-21 02:53] LABS: INR 0.9 (0.8-1.2); PROTHROMBIN TIME 10.3 SECS (9.5-12.5)
[2017-07-21 02:55] LABS: ALANINE AMINOTRANSFERASE 29 U/L (12-78); ALBUMIN 2.7 g/dL (3.4-4.8); ASPARTATE AMINOTRANSFERASE 22 U/L (10-37); TOTAL BILIRUBIN 0.3 mg/dL (0.0-1.0)
[2017-07-21] MEDS ORDERED: PIPERACILLIN/TAZO 3.375 GM in NS 50 ML IV ONE (03:00)
[2017-07-21] MEDS ORDERED: methylPREDNISolone SOD SUCC/PF 62.5 MG/ML VIAL IVP ONE (03:15)
[2017-07-21] MEDS ORDERED: PIPERACILLIN/TAZOBACTAM 3.375 GM/VIAL (ZOSYN) IV ONE (03:48)
[2017-07-21 05:50] LABS: BILIRUBIN,URINE 1+ (NEGATIVE); BLOOD, URINE 3+ (NEGATIVE); CLARITY/URINE CLOUDY (CLEAR); COLOR,URINE YELLOW (YELLOW); GLUCOSE,URINE 2+ (NEGATIVE); KETONES,URINE TRACE (NEGATIVE); LEUKOCYTE ESTERASE ,URINE 1+ (NEGATIVE); NITRITE, URINE NEGATIVE (NEGATIVE); PH,URINE 5.5 (5.0-8.0); PROTEIN URINE 2+ (NEGATIVE); UROBILINOGEN,URINE 0.2 (0.2-1.0)
[2017-07-21 05:54] LABS: BACTERIA,URINE MODERATE /HPF (None Seen); MUCUS,URINE None Seen /LPF (None Seen); WBC,URINE >100 /HPF (0-3); YEAST,URINE Few /HPF (None Seen)
[2017-07-21] MEDS: INSULIN ASPART 100 UNITS/ML, 10 ML VIAL (NovoLOG) SUBCUT PRN ×4 (06:17→21:44)
[2017-07-21] MEDS: IPRATROPIUM BROM 0.5 MG/2.5 ML VIAL.NEB (ATROVENT) INH SCH ×3 (07:42→19:35)
[2017-07-21] MEDS: ALBUTEROL SULFATE 0.083% 2.5 MG/3 ML VIAL.NEB INH SCH ×3 (07:42→19:35)
[2017-07-21] MEDS ORDERED: FUROSEMIDE 20 MG/2 ML VIAL IVP ONE (10:45)
[2017-07-21] MEDS ORDERED: methylPREDNISolone SOD SUCC 40 MG/ML VIAL IVP ONE (11:00)
[2017-07-21] MEDS: ENOXAPARIN SODIUM 30 MG/0.3 ML SYRINGE SUBCUT SCH (11:37)
[2017-07-21] MEDS: cefTRIAXone 1 GM in D5W 50 ML IV SCH (11:45)
[2017-07-21] MEDS ORDERED: HYDROcodone/ACETAMIN 5-325 MG TAB (NORCO/ VICODIN) PO PRN (13:00)
[2017-07-21] MEDS ORDERED: ACETAMINOPHEN 325 MG TABLET PO PRN (13:00)
[2017-07-21] MEDS ORDERED: LR 1,000 ML IV ONE (13:30)
[2017-07-21] MEDS: DOCUSATE SODIUM 250 MG CAPSULE PO SCH ×2 (16:29→21:23)
[2017-07-21] MEDS: GABAPENTIN 100 MG CAPSULE PO SCH ×2 (16:29→21:23)
[2017-07-21] MEDS: methylPREDNISolone SOD SUCC 40 MG/ML VIAL IVP SCH (21:20)
[2017-07-22] VITALS (7 sets, daily range): BP systolic 128–146
[2017-07-22] MEDS: ALBUTEROL SULFATE 0.083% 2.5 MG/3 ML VIAL.NEB INH SCH ×4 (01:09→20:45)
[2017-07-22] MEDS: IPRATROPIUM BROM 0.5 MG/2.5 ML VIAL.NEB (ATROVENT) INH SCH ×4 (01:09→20:45)
[2017-07-22] MEDS: INSULIN ASPART 100 UNITS/ML, 10 ML VIAL (NovoLOG) SUBCUT PRN ×3 (06:42→21:10)
[2017-07-22] MEDS: LEVOTHYROXINE SODIUM 0.125 MG TABLET PO SCH (06:43)
[2017-07-22 07:22] LABS: HEMATOCRIT 30.6 % (36-48); HEMOGLOBIN 10.3 g/dL (12.0-16.0); MEAN CORPUSCULAR HEMOGLOBIN 30 pg (27-31); MEAN CORPUSCULAR HGB CONC 34 % (32-36); MEAN CORPUSCULAR VOLUME 90 fL (79.0-98.0); PLATELET COUNT (AUTO) 228 K/uL (130-430); RED BLOOD CELL COUNT(AUTO) 3.39 MIL/uL (4.2-6.2)
[2017-07-22 07:53] LABS: ANION GAP 3 (5-15); CALCIUM 9.3 mg/dL (8.4-11.0); CHLORIDE 105 mmol/L (98-107); CREATININE 1.02 mg/dL (0.55-1.30); GLUCOSE 188 mg/dL (70-99); POTASSIUM 3.9 mmol/L (3.5-5.1); SODIUM SERUM 142 mmol/L (136-145); UREA NITROGEN, BLOOD 21 mg/dL (8-21)
[2017-07-22 08:29] LABS: ATYPICAL LYMPHOCYTES % 0 % (0-0); BAND % (MANUAL) 1 % (0-6); BASOPHILS % (MANUAL) 0 % (0-2); EOSINOPHILS % (MANUAL) 0 % (0-7); LYMPHOCYTES % (MANUAL) 4 % (20-46); MONOCYTES % (MANUAL) 2 % (0-11)
[2017-07-22] MEDS: methylPREDNISolone SOD SUCC 40 MG/ML VIAL IVP SCH ×2 (09:14→21:07)
[2017-07-22] MEDS: ATORVASTATIN 20 MG TABLET PO SCH (09:15)
[2017-07-22] MEDS: AMIODARONE HCL 200 MG TABLET PO SCH (09:15)
[2017-07-22] MEDS: ENOXAPARIN SODIUM 30 MG/0.3 ML SYRINGE SUBCUT SCH (09:15)
[2017-07-22] MEDS: DOCUSATE SODIUM 250 MG CAPSULE PO SCH ×2 (09:15→21:07)
[2017-07-22] MEDS: GABAPENTIN 100 MG CAPSULE PO SCH ×3 (09:15→21:07)
[2017-07-22] MEDS: POLYETHYLENE GLYCOL 3350, 17 GM/ POWD.PACK PO SCH (09:16)
[2017-07-22] MEDS: OMEPRAZOLE 20 MG CAPSULE.DR (PriLOSEC) PO SCH (09:16)
[2017-07-22] MEDS ORDERED: FUROSEMIDE 20 MG TABLET PO ONE (11:00)
[2017-07-22] MEDS: cefTRIAXone 1 GM in D5W 50 ML IV SCH (11:15)
[2017-07-23] MEDS: ALBUTEROL SULFATE 0.083% 2.5 MG/3 ML VIAL.NEB INH SCH ×4 (01:31→19:35)
[2017-07-23] MEDS: IPRATROPIUM BROM 0.5 MG/2.5 ML VIAL.NEB (ATROVENT) INH SCH ×4 (01:32→19:35)
[2017-07-23 03:45] VITALS: BP_SYST 137
[2017-07-23] MEDS: LEVOTHYROXINE SODIUM 0.125 MG TABLET PO SCH (06:10)
[2017-07-23] MEDS: INSULIN ASPART 100 UNITS/ML, 10 ML VIAL (NovoLOG) SUBCUT PRN ×4 (06:13→22:29)
[2017-07-23 08:51] VITALS: BP_SYST 118
[2017-07-23] MEDS: POLYETHYLENE GLYCOL 3350, 17 GM/ POWD.PACK PO SCH (10:03)
[2017-07-23] MEDS: FUROSEMIDE 20 MG TABLET PO SCH (10:04)
[2017-07-23] MEDS: DOCUSATE SODIUM 250 MG CAPSULE PO SCH ×2 (10:05→21:14)
[2017-07-23] MEDS: OMEPRAZOLE 20 MG CAPSULE.DR (PriLOSEC) PO SCH (10:05)
[2017-07-23] MEDS: ATORVASTATIN 20 MG TABLET PO SCH (10:05)
[2017-07-23] MEDS: GABAPENTIN 100 MG CAPSULE PO SCH ×3 (10:05→21:14)
[2017-07-23] MEDS: AMIODARONE HCL 200 MG TABLET PO SCH (10:05)
[2017-07-23] MEDS: ENOXAPARIN SODIUM 30 MG/0.3 ML SYRINGE SUBCUT SCH (10:05)
[2017-07-23] MEDS: cefTRIAXone 1 GM in D5W 50 ML IV SCH (10:48)
[2017-07-23] MEDS: methylPREDNISolone SOD SUCC 40 MG/ML VIAL IVP SCH ×2 (10:48→21:14)
[2017-07-23] MEDS ORDERED: FLU VACC QS 2017-18(36MOS+)/PF 0.5 ML/SYR SYRINGE I.M. PRN (11:00)
[2017-07-23] MEDS ORDERED: LINEZOLID 300 ML IV ONE (12:00)
[2017-07-23 12:45] VITALS: BP_SYST 122
[2017-07-23 16:31] VITALS: BP_SYST 133
[2017-07-23 20:43] VITALS: BP_SYST 137
[2017-07-23] MEDS: LINEZOLID 300 ML IV SCH (21:30)
[2017-07-24] VITALS (7 sets, daily range): BP systolic 130–148
[2017-07-24] MEDS: ALBUTEROL SULFATE 0.083% 2.5 MG/3 ML VIAL.NEB INH SCH ×4 (01:17→20:12)
[2017-07-24] MEDS: IPRATROPIUM BROM 0.5 MG/2.5 ML VIAL.NEB (ATROVENT) INH SCH ×4 (01:18→20:11)
[2017-07-24] MEDS: LEVOTHYROXINE SODIUM 0.125 MG TABLET PO SCH (06:13)
[2017-07-24] MEDS: INSULIN ASPART 100 UNITS/ML, 10 ML VIAL (NovoLOG) SUBCUT PRN ×4 (06:18→21:53)
[2017-07-24] MEDS: ENOXAPARIN SODIUM 30 MG/0.3 ML SYRINGE SUBCUT SCH (08:59)
[2017-07-24] MEDS: DOCUSATE SODIUM 250 MG CAPSULE PO SCH ×2 (09:00→21:50)
[2017-07-24] MEDS: POLYETHYLENE GLYCOL 3350, 17 GM/ POWD.PACK PO SCH (09:00)
[2017-07-24] MEDS: OMEPRAZOLE 20 MG CAPSULE.DR (PriLOSEC) PO SCH (09:00)
[2017-07-24] MEDS: methylPREDNISolone SOD SUCC 40 MG/ML VIAL IVP SCH (09:00)
[2017-07-24] MEDS: ATORVASTATIN 20 MG TABLET PO SCH (09:01)
[2017-07-24] MEDS: GABAPENTIN 100 MG CAPSULE PO SCH ×3 (09:01→21:49)
[2017-07-24] MEDS: FUROSEMIDE 20 MG TABLET PO SCH (09:02)
[2017-07-24] MEDS: AMIODARONE HCL 200 MG TABLET PO SCH (09:02)
[2017-07-24 10:27] LABS: ANION GAP 7 (5-15); CALCIUM 8.7 mg/dL (8.4-11.0); CHLORIDE 98 mmol/L (98-107); CREATININE 1.16 mg/dL (0.55-1.30); GLUCOSE 316 mg/dL (70-99); SODIUM SERUM 137 mmol/L (136-145); UREA NITROGEN, BLOOD 20 mg/dL (8-21)
[2017-07-24] MEDS: cefTRIAXone 1 GM in D5W 50 ML IV SCH (10:34)
[2017-07-24] MEDS: LINEZOLID 300 ML IV SCH ×2 (11:14→21:50)
[2017-07-24] MEDS ORDERED: INSULIN ASPART 100 UNITS/ML, 10 ML VIAL SUBCUT SCH (17:00)
[2017-07-24] MEDS: PREDNISONE 20 MG TABLET PO SCH (21:50)
[2017-07-25 00:19] VITALS: BP_SYST 152
[2017-07-25] MEDS: ALBUTEROL SULFATE 0.083% 2.5 MG/3 ML VIAL.NEB INH SCH ×3 (01:42→15:11)
[2017-07-25] MEDS: IPRATROPIUM BROM 0.5 MG/2.5 ML VIAL.NEB (ATROVENT) INH SCH ×3 (01:42→15:11)
[2017-07-25 05:40] VITALS: BP_SYST 122
[2017-07-25] MEDS: LEVOTHYROXINE SODIUM 0.125 MG TABLET PO SCH (06:01)
[2017-07-25] MEDS: INSULIN ASPART 100 UNITS/ML, 10 ML VIAL (NovoLOG) SUBCUT PRN ×3 (06:09→17:26)
[2017-07-25 08:00] VITALS: BP_SYST 124
[2017-07-25] MEDS: LINEZOLID 300 ML IV SCH (10:20)
[2017-07-25] MEDS: ATORVASTATIN 20 MG TABLET PO SCH (10:21)
[2017-07-25] MEDS: GABAPENTIN 100 MG CAPSULE PO SCH ×2 (10:21→15:40)
[2017-07-25] MEDS: POLYETHYLENE GLYCOL 3350, 17 GM/ POWD.PACK PO SCH (10:21)
[2017-07-25] MEDS: ENOXAPARIN SODIUM 30 MG/0.3 ML SYRINGE SUBCUT SCH (10:21)
[2017-07-25] MEDS: DOCUSATE SODIUM 250 MG CAPSULE PO SCH (10:22)
[2017-07-25] MEDS: PREDNISONE 20 MG TABLET PO SCH (10:22)
[2017-07-25] MEDS: AMIODARONE HCL 200 MG TABLET PO SCH (10:22)
[2017-07-25] MEDS: FUROSEMIDE 20 MG TABLET PO SCH (10:23)
[2017-07-25] MEDS: OMEPRAZOLE 20 MG CAPSULE.DR (PriLOSEC) PO SCH (10:23)
[2017-07-25 12:41] VITALS: BP_SYST 133
[2017-07-25] MEDS: cefTRIAXone 1 GM in D5W 50 ML IV SCH (13:37)
[2017-07-25 16:00] VITALS: BP_SYST 142
[2017-07-25 18:16] VITALS: BP_SYST 142
== END 2017-07-25 19:39 | DRG 189 ==
LOC: SED 02:04 → STU 03:32 → SMU 07-22 16:37
PROVIDERS: ADMIT Internal Medicine; ATTEND Internal Medicine
DX: J96.20 Acute and chronic respiratory failure, unspecified whether with hypoxia or hypercapnia (principal); J18.9 Pneumonia, unspecified organism; E44.0 Moderate protein-calorie malnutrition; I13.0 Hypertensive heart and chronic kidney disease with heart failure and stage 1 through stage 4 chronic kidney disease, or unspecified chronic kidney disease; I50.30 Unspecified diastolic (congestive) heart failure; J44.0 Chronic obstructive pulmonary disease with (acute) lower respiratory infection; J44.1 Chronic obstructive pulmonary disease with (acute) exacerbation; N39.0 Urinary tract infection, site not specified; I27.2 Other secondary pulmonary hypertension; E11.22 Type 2 diabetes mellitus with diabetic chronic kidney disease; E11.40 Type 2 diabetes mellitus with diabetic neuropathy, unspecified; I48.91 Unspecified atrial fibrillation; M11.262 Other chondrocalcinosis, left knee; R26.9 Unspecified abnormalities of gait and mobility; R54 Age-related physical debility; B95.62 Methicillin resistant Staphylococcus aureus infection as the cause of diseases classified elsewhere; D64.9 Anemia, unspecified; E03.9 Hypothyroidism, unspecified; E78.5 Hyperlipidemia, unspecified; N18.9 Chronic kidney disease, unspecified; Z87.891 Personal history of nicotine dependence; Z99.81 Dependence on supplemental oxygen; Z87.81 Personal history of (healed) traumatic fracture; Z68.25 Body mass index [BMI] 25.0-25.9, adult
CPT/HCPCS: 36415; 71010; 73564; 80048; 80053; 81000-TC; 82962; 83880; 84443-TC; 85007; 85025; 85027; 85610-TC; 85730-TC; 87040-TC; 87081; 87086; 87186-TC; 93005; 94640; 94760; 96365; 96375; 97110-GP; 97116-GP; 97530-GP; 99285; J0696; J1030; J1650; J1815; J1940; J2020; J2543; J2930; J7030; J7040; J7060; J7512; Q2037

== ENCOUNTER 2017-08-25 12:01 | Inpatient (IN) | payer OTHER, BC ==
[~2017-08-25] VITALS: Ht 154.9 cm; Wt 59.0 kg
[2017-08-25 12:05] VITALS: BP_SYST 116
[2017-08-25] MEDS ORDERED: methylPREDNISolone SOD SUCC/PF 62.5 MG/ML VIAL IVP ONE (12:15)
[2017-08-25] MEDS ORDERED: IPRATROPIUM/ALBUTEROL SULFATE 3 ML AMPUL.NEB INH ONE (12:15)
[2017-08-25 12:32] LABS: BASOPHILS % (AUTO) 0.5 % (0.0-2.0); EOSINOPHILS # (AUTO) 0.1 K/uL (0.0-0.4); EOSINOPHILS % (AUTO) 1.8 % (0.0-4.0); HEMATOCRIT 37.8 % (36-48); HEMOGLOBIN 12.4 g/dL (12.0-16.0); LYMPHOCYTES # (AUTO) 1.2 K/uL (1.0-5.5); LYMPHOCYTES % (AUTO) 16.5 % (20.5-51.5); MEAN CORPUSCULAR HEMOGLOBIN 30 pg (27-31); MEAN CORPUSCULAR HGB CONC 33 % (32-36); MEAN CORPUSCULAR VOLUME 91 fL (79.0-98.0); MONOCYTES # (AUTO) 0.8 K/uL (0.0-1.0); MONOCYTES % (AUTO) 11.6 % (1.7-9.3); NEUTROPHILS # (AUTO) 5.1 K/uL (1.8-7.7); NEUTROPHILS % (AUTO) 69.6 % (40.0-70.0); PLATELET COUNT (AUTO) 222 K/uL (130-430); RED BLOOD CELL COUNT(AUTO) 4.16 MIL/uL (4.2-6.2); RED CELL DISTRIBUTION WIDTH 16.1 % (9.0-15.0); WHITE BLOOD COUNT (AUTO) 7.2 K/uL (4.8-10.8)
[2017-08-25] MEDS ORDERED: MULT PO (12:39)
[2017-08-25] MEDS ORDERED: FURO80TA86 PO (12:39)
[2017-08-25] MEDS ORDERED: FLUT1DIS INH (12:41)
[2017-08-25] MEDS ORDERED: SPIRIVA INH (12:41)
[2017-08-25] MEDS ORDERED: IPRA0.2S6 INH (12:41)
[2017-08-25 12:57] LABS: ANION GAP 8 (5-15); CALCIUM 9.9 mg/dL (8.4-11.0); CHLORIDE 98 mmol/L (98-107); GLUCOSE 169 mg/dL (70-99); POTASSIUM 3.4 mmol/L (3.5-5.1); SODIUM SERUM 139 mmol/L (136-145); UREA NITROGEN, BLOOD 20 mg/dL (8-21)
[2017-08-25 13:00] LABS: TOTAL BILIRUBIN 0.8 mg/dL (0.0-1.0)
[2017-08-25 13:01] LABS: ALANINE AMINOTRANSFERASE 31 U/L (12-78); ALBUMIN 3.3 g/dL (3.4-4.8); ASPARTATE AMINOTRANSFERASE 22 U/L (10-37)
[2017-08-25] MEDS ORDERED: NACL 0.9% 1,000 ML IV ONE (13:30)
[2017-08-25] MEDS ORDERED: POTASSIUM CHLORIDE 20 MEQ/PKT PACKET PO ONE (14:30)
[2017-08-25] MEDS ORDERED: cefTRIAXone 1 GM VIAL IM SCH (14:45)
[2017-08-25 14:58] VITALS: BP_SYST 148
[2017-08-25] MEDS ORDERED: HYDROcodone/ACETAMIN 5-325 MG TAB (NORCO/ VICODIN) PO PRN (16:00)
[2017-08-25 16:12] VITALS: BP_SYST 148
[2017-08-25] MEDS ORDERED: ENOXAPARIN SODIUM 30 MG/0.3 ML SYRINGE SUBCUT ONE (16:15)
[2017-08-25] MEDS: GABAPENTIN 100 MG CAPSULE PO SCH ×2 (16:19→21:21)
[2017-08-25 16:21] VITALS: BP_SYST 125
[2017-08-25] MEDS ORDERED: CEFTRIAXONE SOD 1 GM/ D5W 50 ML IV ONE ×2 (16:30)
[2017-08-25] MEDS: INSULIN ASPART 100 UNITS/ML, 10 ML VIAL (NovoLOG) SUBCUT PRN ×2 (16:59→22:13)
[2017-08-25] MEDS: IPRATROPIUM/ALBUTEROL SULFATE 3 ML AMPUL.NEB INH SCH (19:20)
[2017-08-25 19:30] VITALS: BP_SYST 120
[2017-08-25] MEDS ORDERED: ATORVASTATIN 20 MG TABLET PO SCH (21:00)
[2017-08-25] MEDS: ATORVASTATIN 20 MG TABLET PO SCH (21:21)
[2017-08-25] MEDS: methylPREDNISolone SOD SUCC 40 MG/ML VIAL IVP SCH (22:10)
[2017-08-26] VITALS: BP_SYST 131
[2017-08-26] MEDS: IPRATROPIUM/ALBUTEROL SULFATE 3 ML AMPUL.NEB INH SCH ×4 (00:57→19:44)
[2017-08-26 04:00] VITALS: BP_SYST 117
[2017-08-26] MEDS: INSULIN ASPART 100 UNITS/ML, 10 ML VIAL (NovoLOG) SUBCUT PRN ×4 (06:07→21:51)
[2017-08-26] MEDS: methylPREDNISolone SOD SUCC 40 MG/ML VIAL IVP SCH ×3 (06:17→21:45)
[2017-08-26] MEDS ORDERED: LEVOTHYROXINE SODIUM 0.125 MG TABLET PO SCH (07:00)
[2017-08-26 07:02] LABS: BASOPHILS % (AUTO) 0.1 % (0.0-2.0); HEMATOCRIT 33.7 % (36-48); HEMOGLOBIN 11.1 g/dL (12.0-16.0); LYMPHOCYTES # (AUTO) 0.5 K/uL (1.0-5.5); LYMPHOCYTES % (AUTO) 7.4 % (20.5-51.5); MEAN CORPUSCULAR HEMOGLOBIN 30 pg (27-31); MEAN CORPUSCULAR HGB CONC 33 % (32-36); MEAN CORPUSCULAR VOLUME 91 fL (79.0-98.0); MONOCYTES # (AUTO) 0.1 K/uL (0.0-1.0); MONOCYTES % (AUTO) 1.2 % (1.7-9.3); NEUTROPHILS # (AUTO) 5.6 K/uL (1.8-7.7); NEUTROPHILS % (AUTO) 91.3 % (40.0-70.0); PLATELET COUNT (AUTO) 192 K/uL (130-430); RED BLOOD CELL COUNT(AUTO) 3.69 MIL/uL (4.2-6.2); WHITE BLOOD COUNT (AUTO) 6.2 K/uL (4.8-10.8)
[2017-08-26 07:19] LABS: ANION GAP 6 (5-15); CALCIUM 9.3 mg/dL (8.4-11.0); CHLORIDE 98 mmol/L (98-107); CREATININE 1.38 mg/dL (0.55-1.30); GLUCOSE 242 mg/dL (70-99); POTASSIUM 3.8 mmol/L (3.5-5.1); SODIUM SERUM 136 mmol/L (136-145); THYROID STIMULATING HORMONE 0.12 uIu/mL (0.34-4.82); UREA NITROGEN, BLOOD 21 mg/dL (8-21)
[2017-08-26 08:08] VITALS: BP_SYST 99
[2017-08-26] MEDS: CEFTRIAXONE SOD 1 GM/ D5W 50 ML IV SCH ×2 (08:25)
[2017-08-26] MEDS: ENOXAPARIN SODIUM 30 MG/0.3 ML SYRINGE SUBCUT SCH (08:26)
[2017-08-26] MEDS: GABAPENTIN 100 MG CAPSULE PO SCH ×3 (08:28→21:42)
[2017-08-26] MEDS: OMEPRAZOLE 20 MG CAPSULE.DR (PriLOSEC) PO SCH (08:28)
[2017-08-26] MEDS: FUROSEMIDE 20 MG TABLET PO SCH (08:28)
[2017-08-26] MEDS: AMIODARONE HCL 200 MG TABLET PO SCH (08:29)
[2017-08-26 12:29] VITALS: BP_SYST 111
[2017-08-26 17:02] VITALS: BP_SYST 102
[2017-08-26 17:12] LABS: BILIRUBIN,URINE NEGATIVE (NEGATIVE); BLOOD, URINE NEGATIVE (NEGATIVE); CLARITY/URINE CLEAR (CLEAR); COLOR,URINE YELLOW (YELLOW); GLUCOSE,URINE 3+ (NEGATIVE); KETONES,URINE NEGATIVE (NEGATIVE); LEUKOCYTE ESTERASE ,URINE NEGATIVE (NEGATIVE); NITRITE, URINE NEGATIVE (NEGATIVE); PH,URINE 5.5 (5.0-8.0); PROTEIN URINE NEGATIVE (NEGATIVE); UROBILINOGEN,URINE 0.2 (0.2-1.0)
[2017-08-26 17:45] LABS: BACTERIA,URINE FEW /HPF (None Seen); RBC,URINE 0-3 /HPF (0-3); YEAST,URINE Moderate /HPF (None Seen)
[2017-08-26 17:46] LABS: FINE GRANULAR CASTS,URINE 0-1 /LPF (None Seen)
[2017-08-26 20:00] VITALS: BP_SYST 110
[2017-08-26] MEDS: ATORVASTATIN 20 MG TABLET PO SCH (21:42)
[2017-08-27] MEDS: IPRATROPIUM/ALBUTEROL SULFATE 3 ML AMPUL.NEB INH SCH ×4 (01:56→19:35)
[2017-08-27 05:13] VITALS: BP_SYST 108
[2017-08-27] MEDS: methylPREDNISolone SOD SUCC 40 MG/ML VIAL IVP SCH ×2 (06:23→20:41)
[2017-08-27] MEDS: LEVOTHYROXINE SODIUM 0.112 MG TABLET PO SCH (06:23)
[2017-08-27] MEDS: INSULIN ASPART 100 UNITS/ML, 10 ML VIAL (NovoLOG) SUBCUT PRN ×4 (06:28→20:48)
[2017-08-27 08:17] VITALS: BP_SYST 99
[2017-08-27] MEDS: ENOXAPARIN SODIUM 30 MG/0.3 ML SYRINGE SUBCUT SCH (09:51)
[2017-08-27] MEDS: CEFTRIAXONE SOD 1 GM/ D5W 50 ML IV SCH ×2 (09:52)
[2017-08-27] MEDS: AMIODARONE HCL 200 MG TABLET PO SCH (09:53)
[2017-08-27] MEDS: FUROSEMIDE 20 MG TABLET PO SCH (09:53)
[2017-08-27] MEDS: GABAPENTIN 100 MG CAPSULE PO SCH ×3 (09:53→20:41)
[2017-08-27] MEDS: OMEPRAZOLE 20 MG CAPSULE.DR (PriLOSEC) PO SCH (09:53)
[2017-08-27 11:12] VITALS: BP_SYST 113
[2017-08-27 16:20] VITALS: BP_SYST 104
[2017-08-27] MEDS ORDERED: DEXTROSE 50% JECT 50 ML DISP.SYRIN IVP PRN (16:30)
[2017-08-27] MEDS: INSULIN ASPART 100 UNITS/ML, 10 ML VIAL SUBCUT SCH (18:46)
[2017-08-27] MEDS: ATORVASTATIN 20 MG TABLET PO SCH (20:41)
[2017-08-27 20:51] VITALS: BP_SYST 118
[2017-08-28] VITALS (9 sets, daily range): BP systolic 105–131
[2017-08-28] MEDS: IPRATROPIUM/ALBUTEROL SULFATE 3 ML AMPUL.NEB INH SCH ×4 (00:19→20:26)
[2017-08-28] MEDS: LEVOTHYROXINE SODIUM 0.112 MG TABLET PO SCH (06:30)
[2017-08-28] MEDS: INSULIN ASPART 100 UNITS/ML, 10 ML VIAL SUBCUT SCH ×2 (06:32→11:56)
[2017-08-28 08:04] LABS: ANION GAP 4 (5-15); CALCIUM 9.1 mg/dL (8.4-11.0); CHLORIDE 100 mmol/L (98-107); GLUCOSE 79 mg/dL (70-99); POTASSIUM 3.2 mmol/L (3.5-5.1); SODIUM SERUM 137 mmol/L (136-145); UREA NITROGEN, BLOOD 31 mg/dL (8-21)
[2017-08-28] MEDS: CEFTRIAXONE SOD 1 GM/ D5W 50 ML IV SCH ×2 (09:43)
[2017-08-28] MEDS: methylPREDNISolone SOD SUCC 40 MG/ML VIAL IVP SCH ×2 (09:43→20:36)
[2017-08-28] MEDS: OMEPRAZOLE 20 MG CAPSULE.DR (PriLOSEC) PO SCH (09:44)
[2017-08-28] MEDS: GABAPENTIN 100 MG CAPSULE PO SCH ×3 (09:44→20:36)
[2017-08-28] MEDS: AMIODARONE HCL 200 MG TABLET PO SCH (09:44)
[2017-08-28] MEDS: FUROSEMIDE 20 MG TABLET PO SCH (09:44)
[2017-08-28] MEDS: ENOXAPARIN SODIUM 30 MG/0.3 ML SYRINGE SUBCUT SCH (09:45)
[2017-08-28] MEDS: INSULIN ASPART 100 UNITS/ML, 10 ML VIAL (NovoLOG) SUBCUT PRN ×2 (11:55→21:56)
[2017-08-28] MEDS ORDERED: POTASSIUM CHLORIDE 20 MEQ TAB.PRT.SR PO ONE (13:15)
[2017-08-28] MEDS ORDERED: FLUCONAZOLE 100 MG TABLET (DIFLUCAN) PO ONE (13:45)
[2017-08-28] MEDS: ATORVASTATIN 20 MG TABLET PO SCH (20:36)
[2017-08-29 03:40] VITALS: BP_SYST 126
[2017-08-29] MEDS: IPRATROPIUM/ALBUTEROL SULFATE 3 ML AMPUL.NEB INH SCH ×3 (04:32→12:44)
[2017-08-29] MEDS: LEVOTHYROXINE SODIUM 0.112 MG TABLET PO SCH (06:19)
[2017-08-29] MEDS: INSULIN ASPART 100 UNITS/ML, 10 ML VIAL SUBCUT SCH ×3 (06:32→17:23)
[2017-08-29] MEDS: INSULIN ASPART 100 UNITS/ML, 10 ML VIAL (NovoLOG) SUBCUT PRN ×3 (06:36→17:22)
[2017-08-29 08:00] LABS: ANION GAP 3 (5-15); CALCIUM 9.1 mg/dL (8.4-11.0); CHLORIDE 101 mmol/L (98-107); CREATININE 1.23 mg/dL (0.55-1.30); GLUCOSE 234 mg/dL (70-99); POTASSIUM 4.5 mmol/L (3.5-5.1); SODIUM SERUM 136 mmol/L (136-145); UREA NITROGEN, BLOOD 32 mg/dL (8-21)
[2017-08-29 08:10] VITALS: BP_SYST 136
[2017-08-29] MEDS ORDERED: FLUCONAZOLE 100 MG TABLET (DIFLUCAN) PO SCH (09:00)
[2017-08-29] MEDS ORDERED: PREDNISONE 20 MG TABLET PO SCH (09:00)
[2017-08-29] MEDS: CEFTRIAXONE SOD 1 GM/ D5W 50 ML IV SCH ×2 (09:32)
[2017-08-29] MEDS: methylPREDNISolone SOD SUCC 40 MG/ML VIAL IVP SCH (09:32)
[2017-08-29] MEDS: ENOXAPARIN SODIUM 30 MG/0.3 ML SYRINGE SUBCUT SCH (09:32)
[2017-08-29] MEDS: GABAPENTIN 100 MG CAPSULE PO SCH ×2 (09:33→15:09)
[2017-08-29] MEDS: FUROSEMIDE 20 MG TABLET PO SCH (09:33)
[2017-08-29] MEDS: AMIODARONE HCL 200 MG TABLET PO SCH (09:33)
[2017-08-29] MEDS: OMEPRAZOLE 20 MG CAPSULE.DR (PriLOSEC) PO SCH (09:33)
[2017-08-29 11:42] VITALS: BP_SYST 111
[2017-08-29 16:06] VITALS: BP_SYST 132
[2017-08-29 17:40] VITALS: BP_SYST 136
== END 2017-08-29 19:47 | DRG 191 ==
LOC: SED 12:01 → STU 14:17
PROVIDERS: ADMIT Internal Medicine; ATTEND Internal Medicine
DX: J44.1 Chronic obstructive pulmonary disease with (acute) exacerbation (principal); J96.10 Chronic respiratory failure, unspecified whether with hypoxia or hypercapnia; N17.9 Acute kidney failure, unspecified; L89.159 Pressure ulcer of sacral region, unspecified stage; I27.20 Pulmonary hypertension, unspecified; E11.22 Type 2 diabetes mellitus with diabetic chronic kidney disease; E11.40 Type 2 diabetes mellitus with diabetic neuropathy, unspecified; I13.0 Hypertensive heart and chronic kidney disease with heart failure and stage 1 through stage 4 chronic kidney disease, or unspecified chronic kidney disease; N18.9 Chronic kidney disease, unspecified; I48.91 Unspecified atrial fibrillation; I50.9 Heart failure, unspecified; E03.9 Hypothyroidism, unspecified; E78.5 Hyperlipidemia, unspecified; E87.6 Hypokalemia; L89.619 Pressure ulcer of right heel, unspecified stage; L89.629 Pressure ulcer of left heel, unspecified stage; I35.0 Nonrheumatic aortic (valve) stenosis; D64.9 Anemia, unspecified; R54 Age-related physical debility; Z79.899 Other long term (current) drug therapy; Z86.718 Personal history of other venous thrombosis and embolism; Z87.440 Personal history of urinary (tract) infections; Z87.81 Personal history of (healed) traumatic fracture; Z87.891 Personal history of nicotine dependence; Z99.81 Dependence on supplemental oxygen; Z86.14 Personal history of Methicillin resistant Staphylococcus aureus infection; Z79.4 Long term (current) use of insulin
CPT/HCPCS: 36415; 36600; 71010; 80048; 80053; 81000-TC; 82803-TC; 82962; 83036; 83735-TC; 83880; 84443-TC; 84484; 85025; 87081; 93005; 94640; 94760; 96361; 96374; 97110-GP; 97116-GP; 97530-GP; 99285; J0696; J1030; J1650; J1815; J2930; J7030; J7050; J7060; J7512

== ENCOUNTER 2017-10-03 16:22 | Inpatient (IN) | payer OTHER, BC ==
[~2017-10-03] VITALS: Ht 157.5 cm; Wt 68.9 kg
[2017-10-03 16:22] VITALS: BP_SYST 122
[~2017-10-03 16:22] MED LIST changes: -ACET-2165 PO; -ALBU2.5V7 INH; -AMIO100T4 PO; -DOCU250C PO; -DOCU250C71; -GABA-529 PO; -GUAI600T86 PO; -HYDR-1189 PO; -INSU100V26 SUBCUT; -LASI20 IVP; -LEVO25TA7 PO; -LIP20 PO; -LOVI30 SQ; -MAGN400O4 PO; -MORP2SYR INJ; -ONDA4VIA53 IVP; -POLY17PO4 PO; -PRED20TA PO; -ROCPM1 IV; -SSNOVOLOG SUBCUT; -[UNRECOGNIZED DRUG - CODE] IN
[2017-10-03] MEDS ORDERED: NACL 0.9% 1,000 ML IV ONE (16:45)
[2017-10-03] MEDS ORDERED: NS 500 ML IV ONE ×2 (16:45→17:45)
[2017-10-03] MEDS ORDERED: IPRATROPIUM/ALBUTEROL SULFATE 3 ML AMPUL.NEB INH ONE (16:45)
[2017-10-03] MEDS ORDERED: IPRA4AER INH ×2 (17:05)
[2017-10-03] MEDS ORDERED: MULT PO (17:05)
[2017-10-03] MEDS ORDERED: LEVO112T5 PO (17:05)
[2017-10-03] MEDS ORDERED: LOVI30 SQ (17:05)
[2017-10-03] MEDS ORDERED: ACET325T53 PO (17:05)
[2017-10-03] MEDS ORDERED: NPH,100V SUBCUT (17:05)
[2017-10-03] MEDS ORDERED: PRED10TA PO (17:05)
[2017-10-03] MEDS ORDERED: FURO-150 PO (17:05)
[2017-10-03] MEDS ORDERED: HYDR-1189 PO (17:05)
[2017-10-03 17:14] LABS: HEMATOCRIT 36.2 % (36-48); HEMOGLOBIN 12.3 g/dL (12.0-16.0); MEAN CORPUSCULAR HEMOGLOBIN 31 pg (27-31); MEAN CORPUSCULAR HGB CONC 34 % (32-36); MEAN CORPUSCULAR VOLUME 92 fL (79.0-98.0); PLATELET COUNT (AUTO) 272 K/uL (130-430); RED BLOOD CELL COUNT(AUTO) 3.92 MIL/uL (4.2-6.2); RED CELL DISTRIBUTION WIDTH 14.7 % (9.0-15.0); WHITE BLOOD COUNT (AUTO) 10.1 K/uL (4.8-10.8)
[2017-10-03] MEDS ORDERED: PIPERACILLIN/TAZO 3.375 GM in NS 50 ML IV ONE (17:15)
[2017-10-03] MEDS ORDERED: PIPERACILLIN/TAZOBACTAM 3.375 GM/VIAL (ZOSYN) IV ONE (17:21)
[2017-10-03 17:22] LABS: ANION GAP 7 (5-15); CALCIUM 9.4 mg/dL (8.4-11.0); CHLORIDE 97 mmol/L (98-107); CREATININE 1.44 mg/dL (0.55-1.30); GLUCOSE 275 mg/dL (70-99); POTASSIUM 4.6 mmol/L (3.5-5.1); SODIUM SERUM 137 mmol/L (136-145); UREA NITROGEN, BLOOD 26 mg/dL (8-21)
[2017-10-03 17:23] LABS: INR 0.9 (0.8-1.2); PROTHROMBIN TIME 9.5 SECS (9.5-12.5)
[2017-10-03 17:27] LABS: ALANINE AMINOTRANSFERASE 26 U/L (12-78); ALBUMIN 3.2 g/dL (3.4-4.8); ASPARTATE AMINOTRANSFERASE 19 U/L (10-37); TOTAL BILIRUBIN 0.3 mg/dL (0.0-1.0)
[2017-10-03 17:34] LABS: BAND % (MANUAL) 1 % (0-6); LYMPHOCYTES % (MANUAL) 3 % (20-46); MONOCYTES % (MANUAL) 3 % (0-11)
[2017-10-03 17:35] LABS: BASOPHILS % (MANUAL) 0 % (0-2); EOSINOPHILS % (MANUAL) 0 % (0-7)
[2017-10-03 18:14] LABS: BILIRUBIN,URINE NEGATIVE (NEGATIVE); BLOOD, URINE 1+ (NEGATIVE); CLARITY/URINE SL CLOUDY (CLEAR); COLOR,URINE YELLOW (YELLOW); GLUCOSE,URINE 1+ (NEGATIVE); KETONES,URINE NEGATIVE (NEGATIVE); LEUKOCYTE ESTERASE ,URINE 3+ (NEGATIVE); NITRITE, URINE POSITIVE (NEGATIVE); PROTEIN URINE NEGATIVE (NEGATIVE); UROBILINOGEN,URINE 0.2 (0.2-1.0)
[2017-10-03 18:16] LABS: BACTERIA,URINE MANY /HPF (None Seen); MUCUS,URINE None Seen /LPF (None Seen); RBC,URINE 0-3 /HPF (0-3); WBC,URINE >100 /HPF (0-3); YEAST,URINE Few /HPF (None Seen)
[2017-10-03] MEDS ORDERED: LEVOFLOXACIN 500 MG/D5W 100 ML IV SCH (18:30)
[2017-10-03 19:21] VITALS: BP_SYST 117
[2017-10-03] MEDS ORDERED: LEVOFLOXACIN 500 MG/D5W 100 ML IV ONE (20:13)
[2017-10-03] MEDS ORDERED: ACETAMINOPHEN 325 MG TABLET PO PRN (20:45)
[2017-10-03 20:51] VITALS: BP_SYST 123
[2017-10-03] MEDS ORDERED: PRAVASTATIN SODIUM 20 MG TABLET (PRAVACHOL) PO SCH (21:00)
[2017-10-03] MEDS: INSULIN ASPART 100 UNITS/ML, 10 ML VIAL (NovoLOG) SUBCUT PRN (21:27)
[2017-10-03] MEDS: SIMVASTATIN 10 MG TABLET PO SCH (23:19)
[2017-10-03] MEDS: GABAPENTIN 100 MG CAPSULE PO SCH (23:19)
[2017-10-03] MEDS: methylPREDNISolone SOD SUCC 40 MG/ML VIAL IVP SCH (23:19)
[2017-10-04] VITALS (7 sets, daily range): BP systolic 118–144
[2017-10-04] MEDS: HYDROcodone/ACETAMIN 5-325 MG TAB (NORCO/ VICODIN) PO PRN (01:19)
[2017-10-04] MEDS: LEVOTHYROXINE SODIUM 0.112 MG TABLET PO SCH (06:06)
[2017-10-04] MEDS: INSULIN ASPART 100 UNITS/ML, 10 ML VIAL (NovoLOG) SUBCUT PRN ×4 (06:10→20:43)
[2017-10-04 07:09] LABS: BASOPHILS % (AUTO) 0.1 % (0.0-2.0); EOSINOPHILS % (AUTO) 0.1 % (0.0-4.0); HEMATOCRIT 32.3 % (36-48); HEMOGLOBIN 10.7 g/dL (12.0-16.0); LYMPHOCYTES # (AUTO) 0.5 K/uL (1.0-5.5); LYMPHOCYTES % (AUTO) 6.4 % (20.5-51.5); MEAN CORPUSCULAR HEMOGLOBIN 30 pg (27-31); MEAN CORPUSCULAR HGB CONC 33 % (32-36); MEAN CORPUSCULAR VOLUME 91 fL (79.0-98.0); MONOCYTES # (AUTO) 0.2 K/uL (0.0-1.0); MONOCYTES % (AUTO) 2.3 % (1.7-9.3); NEUTROPHILS # (AUTO) 6.4 K/uL (1.8-7.7); NEUTROPHILS % (AUTO) 91.1 % (40.0-70.0); PLATELET COUNT (AUTO) 228 K/uL (130-430); RED BLOOD CELL COUNT(AUTO) 3.53 MIL/uL (4.2-6.2); RED CELL DISTRIBUTION WIDTH 15.4 % (9.0-15.0); WHITE BLOOD COUNT (AUTO) 7.1 K/uL (4.8-10.8)
[2017-10-04 07:24] LABS: ANION GAP 5 (5-15); CALCIUM 8.7 mg/dL (8.4-11.0); CHLORIDE 99 mmol/L (98-107); CREATININE 0.97 mg/dL (0.55-1.30); GLUCOSE 330 mg/dL (70-99); POTASSIUM 4.7 mmol/L (3.5-5.1); SODIUM SERUM 133 mmol/L (136-145); UREA NITROGEN, BLOOD 17 mg/dL (8-21)
[2017-10-04] MEDS: AMIODARONE HCL 200 MG TABLET PO SCH (08:50)
[2017-10-04] MEDS: OMEPRAZOLE 20 MG CAPSULE.DR (PriLOSEC) PO SCH (08:50)
[2017-10-04] MEDS: GABAPENTIN 100 MG CAPSULE PO SCH ×3 (08:50→20:46)
[2017-10-04] MEDS: methylPREDNISolone SOD SUCC 40 MG/ML VIAL IVP SCH ×3 (08:50→20:46)
[2017-10-04] MEDS: ENOXAPARIN SODIUM 30 MG/0.3 ML SYRINGE SQ SCH (08:51)
[2017-10-04] MEDS ORDERED: INSULIN GLARGINE 100 UNITS/ML 10 ML VIAL SUBCUT SCH (09:00)
[2017-10-04] MEDS ORDERED: BISACODYL 10 MG/SUPPOSITORY RC ONE (13:30)
[2017-10-04] MEDS ORDERED: BISACODYL 10 MG/SUPPOSITORY RC PRN (13:30)
[2017-10-04] MEDS ORDERED: IPRATROPIUM/ALBUTEROL SULFATE 3 ML AMPUL.NEB INH PRN (13:30)
[2017-10-04] MEDS ORDERED: NA PHOS,M-B/NA PHOS,DI-BA 118 ML (FLEET ENEMA) RC ONE (13:45)
[2017-10-04] MEDS ORDERED: DOCUSATE SODIUM 250 MG CAPSULE PO ONE (13:45)
[2017-10-04] MEDS: IPRATROPIUM/ALBUTEROL SULFATE 3 ML AMPUL.NEB INH SCH ×3 (15:54→23:22)
[2017-10-04] MEDS: MUPIROCIN 2% TOPICAL OINTMENT 22 GM NS SCH (20:47)
[2017-10-04] MEDS: DOCUSATE SODIUM 250 MG CAPSULE PO SCH (20:47)
[2017-10-04] MEDS: SIMVASTATIN 10 MG TABLET PO SCH (20:47)
[2017-10-04] MEDS: LEVOFLOXACIN 250 MG/D5W 50 ML IV SCH (20:49)
[2017-10-05 00:36] VITALS: BP_SYST 134
[2017-10-05] MEDS: IPRATROPIUM/ALBUTEROL SULFATE 3 ML AMPUL.NEB INH SCH ×6 (03:36→23:00)
[2017-10-05 04:27] VITALS: BP_SYST 136
[2017-10-05] MEDS: INSULIN ASPART 100 UNITS/ML, 10 ML VIAL (NovoLOG) SUBCUT PRN ×4 (06:08→21:46)
[2017-10-05] MEDS: LEVOTHYROXINE SODIUM 0.112 MG TABLET PO SCH (06:11)
[2017-10-05 07:04] LABS: BASOPHILS % (AUTO) 0.3 % (0.0-2.0); HEMATOCRIT 31.6 % (36-48); HEMOGLOBIN 10.6 g/dL (12.0-16.0); LYMPHOCYTES # (AUTO) 0.3 K/uL (1.0-5.5); LYMPHOCYTES % (AUTO) 3.9 % (20.5-51.5); MEAN CORPUSCULAR HEMOGLOBIN 31 pg (27-31); MEAN CORPUSCULAR HGB CONC 34 % (32-36); MEAN CORPUSCULAR VOLUME 92 fL (79.0-98.0); MONOCYTES # (AUTO) 0.2 K/uL (0.0-1.0); MONOCYTES % (AUTO) 3.3 % (1.7-9.3); NEUTROPHILS % (AUTO) 92.5 % (40.0-70.0); PLATELET COUNT (AUTO) 236 K/uL (130-430); RED BLOOD CELL COUNT(AUTO) 3.43 MIL/uL (4.2-6.2); RED CELL DISTRIBUTION WIDTH 14.8 % (9.0-15.0); WHITE BLOOD COUNT (AUTO) 7.5 K/uL (4.8-10.8)
[2017-10-05 07:18] LABS: ALANINE AMINOTRANSFERASE 27 U/L (12-78); ALBUMIN 2.7 g/dL (3.4-4.8); ANION GAP 9 (5-15); ASPARTATE AMINOTRANSFERASE 13 U/L (10-37); CALCIUM 9.4 mg/dL (8.4-11.0); CHLORIDE 98 mmol/L (98-107); CREATININE 1.02 mg/dL (0.55-1.30); POTASSIUM 4.5 mmol/L (3.5-5.1); SODIUM SERUM 135 mmol/L (136-145); TOTAL BILIRUBIN 0.4 mg/dL (0.0-1.0); UREA NITROGEN, BLOOD 20 mg/dL (8-21)
[2017-10-05 07:21] LABS: GLUCOSE 426 mg/dL (70-99)
[2017-10-05 08:13] VITALS: BP_SYST 113
[2017-10-05] MEDS: DOCUSATE SODIUM 250 MG CAPSULE PO SCH ×2 (09:04→21:27)
[2017-10-05] MEDS: OMEPRAZOLE 20 MG CAPSULE.DR (PriLOSEC) PO SCH (09:05)
[2017-10-05] MEDS: AMIODARONE HCL 200 MG TABLET PO SCH (09:05)
[2017-10-05] MEDS: MUPIROCIN 2% TOPICAL OINTMENT 22 GM NS SCH ×2 (09:05→21:27)
[2017-10-05] MEDS: ENOXAPARIN SODIUM 30 MG/0.3 ML SYRINGE SQ SCH (09:06)
[2017-10-05] MEDS: methylPREDNISolone SOD SUCC 40 MG/ML VIAL IVP SCH ×3 (09:06→21:26)
[2017-10-05] MEDS: GABAPENTIN 100 MG CAPSULE PO SCH ×3 (09:12→21:27)
[2017-10-05] MEDS: HYDROcodone/ACETAMIN 5-325 MG TAB (NORCO/ VICODIN) PO PRN (11:15)
[2017-10-05 11:25] VITALS: BP_SYST 129
[2017-10-05 15:15] VITALS: BP_SYST 117
[2017-10-05 20:00] VITALS: BP_SYST 129
[2017-10-05] MEDS: LEVOFLOXACIN 250 MG/D5W 50 ML IV SCH (21:26)
[2017-10-05] MEDS: SIMVASTATIN 10 MG TABLET PO SCH (21:27)
[2017-10-06 00:10] VITALS: BP_SYST 133
[2017-10-06] MEDS: IPRATROPIUM/ALBUTEROL SULFATE 3 ML AMPUL.NEB INH SCH ×6 (03:00→23:10)
[2017-10-06 04:03] VITALS: BP_SYST 125
[2017-10-06] MEDS: HYDROcodone/ACETAMIN 5-325 MG TAB (NORCO/ VICODIN) PO PRN (06:11)
[2017-10-06] MEDS: LEVOTHYROXINE SODIUM 0.112 MG TABLET PO SCH (06:11)
[2017-10-06] MEDS: INSULIN ASPART 100 UNITS/ML, 10 ML VIAL (NovoLOG) SUBCUT PRN ×4 (06:15→20:47)
[2017-10-06 07:23] LABS: ANION GAP 6 (5-15); CALCIUM 9.3 mg/dL (8.4-11.0); CHLORIDE 100 mmol/L (98-107); CREATININE 0.96 mg/dL (0.55-1.30); GLUCOSE 268 mg/dL (70-99); POTASSIUM 4.1 mmol/L (3.5-5.1); SODIUM SERUM 136 mmol/L (136-145); UREA NITROGEN, BLOOD 23 mg/dL (8-21)
[2017-10-06 07:53] VITALS: BP_SYST 126
[2017-10-06] MEDS: AMIODARONE HCL 200 MG TABLET PO SCH (08:48)
[2017-10-06] MEDS: methylPREDNISolone SOD SUCC 40 MG/ML VIAL IVP SCH ×3 (08:48→20:40)
[2017-10-06] MEDS: DOCUSATE SODIUM 250 MG CAPSULE PO SCH ×2 (08:49→20:41)
[2017-10-06] MEDS: ENOXAPARIN SODIUM 30 MG/0.3 ML SYRINGE SQ SCH (08:49)
[2017-10-06] MEDS: OMEPRAZOLE 20 MG CAPSULE.DR (PriLOSEC) PO SCH (08:49)
[2017-10-06] MEDS: GABAPENTIN 100 MG CAPSULE PO SCH ×3 (08:49→20:41)
[2017-10-06] MEDS: MUPIROCIN 2% TOPICAL OINTMENT 22 GM NS SCH ×2 (09:05→20:50)
[2017-10-06] MEDS ORDERED: IPRATROPIUM/ALBUTEROL SULFATE 3 ML AMPUL.NEB ONE (11:16)
[2017-10-06 11:25] VITALS: BP_SYST 118
[2017-10-06 15:27] VITALS: BP_SYST 114
[2017-10-06] MEDS: FLUCONAZOLE 100 mg/ NS 50 ML IV SCH (17:57)
[2017-10-06 20:00] VITALS: BP_SYST 121
[2017-10-06] MEDS: SIMVASTATIN 10 MG TABLET PO SCH (20:41)
[2017-10-06] MEDS: GENTAMICIN 120 MG/ ISO-OSM 100 ML PREMIX IV SCH (20:50)
[2017-10-07] VITALS (7 sets, daily range): BP systolic 118–139
[2017-10-07] MEDS: IPRATROPIUM/ALBUTEROL SULFATE 3 ML AMPUL.NEB INH SCH ×6 (02:43→23:25)
[2017-10-07] MEDS: LEVOTHYROXINE SODIUM 0.112 MG TABLET PO SCH (06:20)
[2017-10-07] MEDS: INSULIN ASPART 100 UNITS/ML, 10 ML VIAL (NovoLOG) SUBCUT PRN ×4 (06:27→20:54)
[2017-10-07] MEDS: ENOXAPARIN SODIUM 30 MG/0.3 ML SYRINGE SQ SCH (08:07)
[2017-10-07] MEDS: methylPREDNISolone SOD SUCC 40 MG/ML VIAL IVP SCH ×3 (08:07→20:55)
[2017-10-07] MEDS: OMEPRAZOLE 20 MG CAPSULE.DR (PriLOSEC) PO SCH (08:07)
[2017-10-07] MEDS: DOCUSATE SODIUM 250 MG CAPSULE PO SCH ×2 (08:08→20:33)
[2017-10-07] MEDS: GABAPENTIN 100 MG CAPSULE PO SCH ×3 (08:08→20:33)
[2017-10-07] MEDS: MUPIROCIN 2% TOPICAL OINTMENT 22 GM NS SCH ×2 (08:09→20:58)
[2017-10-07] MEDS: AMIODARONE HCL 200 MG TABLET PO SCH (08:09)
[2017-10-07] MEDS: GENTAMICIN 120 MG/ ISO-OSM 100 ML PREMIX IV SCH (18:00)
[2017-10-07] MEDS: FLUCONAZOLE 100 mg/ NS 50 ML IV SCH (18:31)
[2017-10-07] MEDS: SIMVASTATIN 10 MG TABLET PO SCH (20:33)
[2017-10-08 00:04] VITALS: BP_SYST 125
[2017-10-08] MEDS: IPRATROPIUM/ALBUTEROL SULFATE 3 ML AMPUL.NEB INH SCH ×6 (03:00→23:22)
[2017-10-08 03:25] VITALS: BP_SYST 123
[2017-10-08] MEDS: LEVOTHYROXINE SODIUM 0.112 MG TABLET PO SCH (06:36)
[2017-10-08] MEDS: INSULIN ASPART 100 UNITS/ML, 10 ML VIAL (NovoLOG) SUBCUT PRN ×5 (06:39→21:48)
[2017-10-08 07:30] LABS: ANION GAP 7 (5-15); CALCIUM 8.7 mg/dL (8.4-11.0); CHLORIDE 101 mmol/L (98-107); CREATININE 0.95 mg/dL (0.55-1.30); GLUCOSE 317 mg/dL (70-99); POTASSIUM 4.4 mmol/L (3.5-5.1); SODIUM SERUM 136 mmol/L (136-145); UREA NITROGEN, BLOOD 23 mg/dL (8-21)
[2017-10-08 08:00] VITALS: BP_SYST 132
[2017-10-08] MEDS: ENOXAPARIN SODIUM 30 MG/0.3 ML SYRINGE SQ SCH (08:16)
[2017-10-08] MEDS: DOCUSATE SODIUM 250 MG CAPSULE PO SCH ×2 (08:16→21:45)
[2017-10-08] MEDS: AMIODARONE HCL 200 MG TABLET PO SCH (08:17)
[2017-10-08] MEDS: methylPREDNISolone SOD SUCC 40 MG/ML VIAL IVP SCH ×2 (08:18→21:46)
[2017-10-08] MEDS: GABAPENTIN 100 MG CAPSULE PO SCH ×3 (08:18→21:45)
[2017-10-08] MEDS: OMEPRAZOLE 20 MG CAPSULE.DR (PriLOSEC) PO SCH (08:18)
[2017-10-08] MEDS: HYDROcodone/ACETAMIN 5-325 MG TAB (NORCO/ VICODIN) PO PRN ×2 (08:18→15:47)
[2017-10-08] MEDS: MUPIROCIN 2% TOPICAL OINTMENT 22 GM NS SCH ×2 (08:23→21:47)
[2017-10-08] MEDS ORDERED: FUROSEMIDE 20 MG/2 ML VIAL IVP ONE (15:15)
[2017-10-08 15:34] VITALS: BP_SYST 126
[2017-10-08] MEDS: FLUCONAZOLE 100 mg/ NS 50 ML IV SCH (17:07)
[2017-10-08] MEDS: GENTAMICIN 120 MG/ ISO-OSM 100 ML PREMIX IV SCH (18:04)
[2017-10-08] MEDS: SIMVASTATIN 10 MG TABLET PO SCH (21:45)
[2017-10-09 00:34] VITALS: BP_SYST 143
[2017-10-09] MEDS: IPRATROPIUM/ALBUTEROL SULFATE 3 ML AMPUL.NEB INH SCH ×6 (03:46→23:27)
[2017-10-09 03:47] VITALS: BP_SYST 140
[2017-10-09] MEDS: LEVOTHYROXINE SODIUM 0.112 MG TABLET PO SCH (06:25)
[2017-10-09] MEDS: INSULIN ASPART 100 UNITS/ML, 10 ML VIAL (NovoLOG) SUBCUT PRN ×4 (06:27→21:50)
[2017-10-09 06:45] LABS: BASOPHILS % (AUTO) 0.1 % (0.0-2.0); EOSINOPHILS % (AUTO) 0.1 % (0.0-4.0); HEMATOCRIT 34.3 % (36-48); HEMOGLOBIN 11.6 g/dL (12.0-16.0); LYMPHOCYTES # (AUTO) 0.5 K/uL (1.0-5.5); LYMPHOCYTES % (AUTO) 4.7 % (20.5-51.5); MEAN CORPUSCULAR HEMOGLOBIN 31 pg (27-31); MEAN CORPUSCULAR HGB CONC 34 % (32-36); MEAN CORPUSCULAR VOLUME 92 fL (79.0-98.0); MONOCYTES # (AUTO) 0.3 K/uL (0.0-1.0); MONOCYTES % (AUTO) 2.6 % (1.7-9.3); NEUTROPHILS # (AUTO) 9.2 K/uL (1.8-7.7); NEUTROPHILS % (AUTO) 92.5 % (40.0-70.0); PLATELET COUNT (AUTO) 244 K/uL (130-430); RED BLOOD CELL COUNT(AUTO) 3.71 MIL/uL (4.2-6.2); RED CELL DISTRIBUTION WIDTH 15.1 % (9.0-15.0); WHITE BLOOD COUNT (AUTO) 10.1 K/uL (4.8-10.8)
[2017-10-09 07:17] LABS: ALANINE AMINOTRANSFERASE 22 U/L (12-78); ALBUMIN 2.8 g/dL (3.4-4.8); ASPARTATE AMINOTRANSFERASE 12 U/L (10-37); CALCIUM 9.1 mg/dL (8.4-11.0); CHLORIDE 97 mmol/L (98-107); CREATININE 1.08 mg/dL (0.55-1.30); GLUCOSE 311 mg/dL (70-99); POTASSIUM 5.6 mmol/L (3.5-5.1); SODIUM SERUM 132 mmol/L (136-145); TOTAL BILIRUBIN 0.4 mg/dL (0.0-1.0); UREA NITROGEN, BLOOD 28 mg/dL (8-21)
[2017-10-09 07:20] LABS: ANION GAP < 3 (5-15)
[2017-10-09] MEDS: methylPREDNISolone SOD SUCC 40 MG/ML VIAL IVP SCH ×2 (08:45→21:29)
[2017-10-09] MEDS: HYDROcodone/ACETAMIN 5-325 MG TAB (NORCO/ VICODIN) PO PRN (08:45)
[2017-10-09] MEDS: ENOXAPARIN SODIUM 30 MG/0.3 ML SYRINGE SQ SCH (08:46)
[2017-10-09] MEDS: MUPIROCIN 2% TOPICAL OINTMENT 22 GM NS SCH (08:54)
[2017-10-09] MEDS: DOCUSATE SODIUM 250 MG CAPSULE PO SCH ×2 (09:14→21:30)
[2017-10-09] MEDS: GABAPENTIN 100 MG CAPSULE PO SCH ×3 (09:14→21:30)
[2017-10-09] MEDS: AMIODARONE HCL 200 MG TABLET PO SCH (09:15)
[2017-10-09] MEDS: OMEPRAZOLE 20 MG CAPSULE.DR (PriLOSEC) PO SCH (09:16)
[2017-10-09 11:48] VITALS: BP_SYST 132
[2017-10-09] MEDS: FLUCONAZOLE 100 mg/ NS 50 ML IV SCH (17:34)
[2017-10-09] MEDS: GENTAMICIN 120 MG/ ISO-OSM 100 ML PREMIX IV SCH (17:34)
[2017-10-09 18:21] VITALS: BP_SYST 111
[2017-10-09 19:50] VITALS: BP_SYST 137
[2017-10-09] MEDS: SIMVASTATIN 10 MG TABLET PO SCH (21:29)
[2017-10-09 23:30] VITALS: BP_SYST 127
[2017-10-10] MEDS: IPRATROPIUM/ALBUTEROL SULFATE 3 ML AMPUL.NEB INH SCH ×5 (03:21→19:43)
[2017-10-10 04:32] VITALS: BP_SYST 119
[2017-10-10] MEDS: LEVOTHYROXINE SODIUM 0.112 MG TABLET PO SCH (06:21)
[2017-10-10 06:57] LABS: CALCIUM 9.3 mg/dL (8.4-11.0); CHLORIDE 100 mmol/L (98-107); CREATININE 1.02 mg/dL (0.55-1.30); GLUCOSE 130 mg/dL (70-99); SODIUM SERUM 136 mmol/L (136-145); UREA NITROGEN, BLOOD 26 mg/dL (8-21)
[2017-10-10 07:03] LABS: ANION GAP 0 (5-15); POTASSIUM 6.3 mmol/L (3.5-5.1)
[2017-10-10 08:00] VITALS: BP_SYST 117
[2017-10-10] MEDS: OMEPRAZOLE 20 MG CAPSULE.DR (PriLOSEC) PO SCH (08:43)
[2017-10-10] MEDS: GABAPENTIN 100 MG CAPSULE PO SCH ×3 (08:43→20:26)
[2017-10-10] MEDS: ENOXAPARIN SODIUM 30 MG/0.3 ML SYRINGE SQ SCH (08:45)
[2017-10-10] MEDS: HYDROcodone/ACETAMIN 5-325 MG TAB (NORCO/ VICODIN) PO PRN (08:45)
[2017-10-10] MEDS: methylPREDNISolone SOD SUCC 40 MG/ML VIAL IVP SCH (08:45)
[2017-10-10] MEDS: DOCUSATE SODIUM 250 MG CAPSULE PO SCH ×2 (08:45→20:25)
[2017-10-10] MEDS: AMIODARONE HCL 200 MG TABLET PO SCH (08:51)
[2017-10-10 08:56] VITALS: BP_SYST 119
[2017-10-10] MEDS ORDERED: BALSAM PERU/CASTOR OIL 60 GM OINT...G. TP SCH (10:15)
[2017-10-10] MEDS ORDERED: SODIUM POLYSTYRENE SULFONATE 15 GM/60 ML UDBTL PO ONE (10:30)
[2017-10-10] MEDS: INSULIN ASPART 100 UNITS/ML, 10 ML VIAL (NovoLOG) SUBCUT PRN ×3 (11:52→20:34)
[2017-10-10 11:56] VITALS: BP_SYST 124
[2017-10-10] MEDS ORDERED: FUROSEMIDE 20 MG TABLET PO ONE (15:45)
[2017-10-10 16:23] LABS: ANION GAP 6 (5-15); CALCIUM 8.6 mg/dL (8.4-11.0); CHLORIDE 96 mmol/L (98-107); CREATININE 1.02 mg/dL (0.55-1.30); GENTAMICIN,TROUGH 1.2 ug/mL (0.2-2.0); GLUCOSE 215 mg/dL (70-99); POTASSIUM 4.8 mmol/L (3.5-5.1); SODIUM SERUM 135 mmol/L (136-145); UREA NITROGEN, BLOOD 24 mg/dL (8-21)
[2017-10-10 16:37] VITALS: BP_SYST 127
[2017-10-10] MEDS: FLUCONAZOLE 100 mg/ NS 50 ML IV SCH (16:48)
[2017-10-10 17:57] VITALS: BP_SYST 127
[2017-10-10] MEDS: GENTAMICIN 120 MG/ ISO-OSM 100 ML PREMIX IV SCH (18:12)
[2017-10-10] MEDS: SIMVASTATIN 10 MG TABLET PO SCH (20:26)
[2017-10-10] MEDS ORDERED: PREDNISONE 20 MG TABLET PO SCH (21:00)
[2017-10-11] MEDS ORDERED: FUROSEMIDE 20 MG TABLET PO SCH (09:00)
== END 2017-10-10 21:00 | DRG 682 ==
LOC: SED 16:22 → STU 18:07 → SMU 10-04 13:35
PROVIDERS: ADMIT Internal Medicine; ATTEND Internal Medicine
DX: N17.9 Acute kidney failure, unspecified (principal); J18.9 Pneumonia, unspecified organism; J44.1 Chronic obstructive pulmonary disease with (acute) exacerbation; N39.0 Urinary tract infection, site not specified
CPT/HCPCS: 36415; 36600; 71010; 80048; 80053; 80170-TC; 81000-TC; 82803-TC; 82962; 83605; 83735-TC; 83880; 84484; 85007; 85025; 85027; 85610-TC; 85730-TC; 87040-TC; 87081; 87086; 87186-TC; 92610-GN; 93005; 94640; 94760; 96365; 97110-GP; 97530-GP; 99285; J1030; J1450; J1580; J1650; J1815; J1940; J1956; J2543; J7030; J7040; J7050; J7512